=== PATIENT | female | born 1950 | race Caucasian/White ===

== ENCOUNTER → 2017-08-14 07:46 | Outpatient (CLI) | payer MEDICARE, SELFPAY ==
[2017-08-14 10:13] LABS: Absolute Lymphocyte Count 1.75 X10^3/ul (0.83-4.51); Absolute Neutrophil Count 4.3 X10^3/uL (2.0-7.7); Basophil# 0.03 X10^3/uL; Basophil% 0.4 % (0-1); Eosinophil# 0.26 X10^3/uL; Eosinophils% 3.9 % (0-5); Hematocrit 43.3 % (37-47); Lymphocyte # 1.75 X10^3/ul (4.0); Mean Corp Hgb Conc 32.3 g/gl (32-36); Mean Corpuscular Hgb 28.7 pg (27.0-32.0); Mean Corpuscular Volume 88.9 fL (81-99); Mean Platelet Vol. 10.7 fl (6.2-12.0); Monocyte% 5.9 % (0-10); Neutrophil # 4.28 X10^3/uL (2.7-7.7); Neutrophil % 63.7 % (47-70); Platelet Count 348 K/mm3 (150-450); RBC Distribution Width CV 13.7 % (11.6-14.6); RBC Distribution Width SD 44.6 fl (35.1-43.9); Red Blood Count 4.87 M/mm3 (4.2-5.4); White Blood Count 6.7 K/mm3 (4.4-11.0)
[2017-08-14 10:16] LABS: POSITIVE COUNT NO; POSITIVE DIFFERENTIAL NO; POSITIVE MORPHOLOGY NO
[2017-08-14 10:46] LABS: Anion Gap 7 (5-15); BUN 13 mg/dL (7-18); BUN/Creat Ratio 14.1 RATIO (10-20); Calcium,Total 9.2 mg/dL (8.5-10.1); Chloride 106 mmol/L (98-107); Cholesterol 228 mg/dL (200); Creatinine, Serum 0.92 mg/dL (0.55-1.02); EST Glomerular Filtration Rate 65 mL/min (>60); Est Glom Filt Rate - Afr Amer 78 mL/min (>60); Glucose 89 mg/dL (74-106); High Density Lipoprotein 71 mg/dL; Sodium Level 141 mmol/L (136-145); T4 Free Direct 1.19 ng/dL (0.76-1.46); Thyroid Stim Hormone (TSH) 1.81 uIU/mL (0.358-3.74); Triglycerides 96 mg/dL; Very Low Density Lipoprotein 19 mg/dL (5-40)
[2017-08-15 09:24] LABS: Vitamin D,25 Hydroxy 85.8 ng/mL (29.95-100.01)
== END ==
PROVIDERS: Family Provider Family Medicine; PCP Family Medicine; Visit Provider Family Medicine
DX: E87.6 Hypokalemia (principal); M81.0 Age-related osteoporosis without current pathological fracture; G47.00 Insomnia, unspecified; Z13.220 Encounter for screening for lipoid disorders; R03.0 Elevated blood-pressure reading, without diagnosis of hypertension
CPT/HCPCS: 36415; 80048; 80061; 82306; 84439; 84443; 85025

== ENCOUNTER → 2017-12-26 10:42 | Outpatient (CLI) | payer MEDICARE, SELFPAY ==
--- NOTE | 2017-12-26 10:43 | BI_ITS ---
MAMMOGRAPHY - BILATERAL SCREENING REASON FOR EXAM: Female, 67 years old. Routine annual screening examination. PERTINENT HISTORY: Non-contributory. TECHNIQUE: Digital bilateral breast domingo (3D mammographic acquisition) in the CC and MLO projections. 2-D mediolateral oblique (MLO) and craniocaudad (CC) views of both breasts were obtained. CAD: Full Field Digital Mammography with Computer Added Detection was performed. COMPARISON: Comparison is made with prior outside examination of February 10, 2016 and November 13, 2012. FINDINGS: Breast Composition: The breasts are heterogeneously dense, which may obscure small masses. There are no dominant masses or suspicious calcifications. No other significant abnormalities are identified. There has been no significant change since the prior study. BI/SCREENING MAMM (CAD), BILAT IMPRESSION: Stable bilateral screening mammogram. Yearly follow-up mammogram recommended. (A) ASSESSMENT CATEGORY: BIRADS Category 1: Negative. A letter regarding these results will be sent to the patient by the facility within 30 days. Approximately 10% of breast cancers are not detected by mammography. A normal mammogram should not delay biopsy of a clinically suspicious abnormality. [id number] Electronically Signed: Javon Bennett MD at 12:41 EDT Tel [phone], Service support ,
== END ==
PROVIDERS: Family Provider Family Medicine; PCP Family Medicine; Visit Provider Nurse Practitioner Women's Health
DX: Z12.31 Encounter for screening mammogram for malignant neoplasm of breast (principal)
CPT/HCPCS: 77063; 77067

== ENCOUNTER → 2018-01-23 15:20 | Outpatient (CLI) | payer MEDICARE, SELFPAY ==
--- NOTE | 2018-01-23 15:23 | RAD_ITS ---
STUDY: X-RAY CHEST REASON FOR EXAM: Female, 67 years old. Frequent PVCs TECHNIQUE: PA and lateral views of the chest. COMPARISON: None. FINDINGS: The lungs are clear and expanded. There is no demonstrated pleural abnormality. Normal size heart. Normal mediastinum and sebastian. Normal visualized pulmonary arteries. There is atherosclerotic calcification of the aortic arch with tortuosity. There are diffuse degenerative changes of the visualized thoracic spine. Normal visualized ribs, clavicles, and shoulders. There is no demonstrated abnormality of the visualized soft tissue structures of the upper abdomen. RAD/Chest PA and Lateral IMPRESSION: No acute pulmonary process Electronically Signed: Bart Abbott MD at 15:45 EDT , Service support ,
[2018-01-23 18:07] LABS: Anion Gap 8 (5-15); BUN 14 mg/dL (7-18); BUN/Creat Ratio 15.6 RATIO (10-20); Calcium,Total 9.2 mg/dL (8.5-10.1); Chloride 101 mmol/L (98-107); EST Glomerular Filtration Rate 67 mL/min (>60); Est Glom Filt Rate - Afr Amer 81 mL/min (>60); Glucose 105 mg/dL (74-106); Magnesium 2.2 mg/dL (1.6-2.6); Potassium 3.1 mmol/L (3.5-5.1); Sodium Level 136 mmol/L (136-145); T4 Free Direct 1.01 ng/dL (0.76-1.46); Thyroid Stim Hormone (TSH) 1.22 uIU/mL (0.358-3.74)
[2018-01-23 18:17] LABS: Absolute Lymphocyte Count 2.82 X10^3/ul (0.83-4.51); Basophil# 0.03 X10^3/uL; Basophil% 0.3 % (0-1); Eosinophil# 0.23 X10^3/uL; Eosinophils% 2.4 % (0-5); Hemoglobin 12.7 g/dl (12.0-15.0); Lymphocyte # 2.82 X10^3/ul (4.0); Lymphocyte % 29.2 % (19-41); Mean Corp Hgb Conc 31.8 g/gl (32-36); Mean Corpuscular Hgb 28.6 pg (27.0-32.0); Mean Corpuscular Volume 90.1 fL (81-99); Mean Platelet Vol. 11.4 fl (6.2-12.0); Monocyte# 0.62 X10^3/uL; Monocyte% 6.4 % (0-10); Neutrophil # 5.95 X10^3/uL (2.7-7.7); Neutrophil % 61.6 % (47-70); Platelet Count 342 K/mm3 (150-450); RBC Distribution Width CV 13.6 % (11.6-14.6); Red Blood Count 4.44 M/mm3 (4.2-5.4); White Blood Count 9.7 K/mm3 (4.4-11.0)
[2018-01-23 18:18] LABS: POSITIVE COUNT NO; POSITIVE DIFFERENTIAL NO; POSITIVE MORPHOLOGY NO
== END ==
PROVIDERS: Family Provider Family Medicine; PCP Family Medicine; Referring Provider Family Medicine; Visit Provider Family Medicine
DX: R06.00 Dyspnea, unspecified (principal); I49.9 Cardiac arrhythmia, unspecified; R06.02 Shortness of breath; F41.9 Anxiety disorder, unspecified; E87.6 Hypokalemia
CPT/HCPCS: 36415; 71046; 80048; 83735; 84439; 84443; 85025

== ENCOUNTER → 2018-02-19 13:48 | Outpatient (CLI) | payer MEDICARE, SELFPAY ==
--- NOTE | 2018-02-19 13:53 | ECHOD_ITS ---
Reason For Study: SOB Procedure This was a 2D Doppler, Color Flow transthoracic echocardiogram. Exam performed in department. Left Ventricle Normal size and thickness. The estimated ejection fraction is 65 %. Normal diastology for age. No regional wall motion abnormalities noted. Right Ventricle Normal size and thickness. Normal systolic function. Atria Normal left atrium. Normal right atrium. Normal atrial septum. Bubble contrast study negative for right to left interatrial shunt. Mitral Valve The mitral valve is structurally normal. No prolapse or stenosis seen. Trivial mitral valve insufficiency. Tricuspid Valve Normal tricuspid valve. Trivial tricuspid valve insufficiency. Right ventricular systolic pressure estimated to be 34 mmHg. Aortic Valve Normal aortic valve. Trisinus/trileaflet aortic valve. Pulmonic Valve Normal pulmonic valve. Great Vessels Normal aortic root. Normal arch. Normal inferior vena cava. Inferior vena cava collapse with respiration. Pericardium/Pleural No pericardial effusion. Medication 22 gauge I.V. with prn adaptor inserted into right arm. Performed a rapid injection of agitated mix of 9 cc saline and 1cc air to assess for atrial septal defect. MMode/2D Measurements & Calculations LVIDd: 4.1 cm IVSd: 0.95 cm Ao root diam: 2.9 cm LVIDs: 2.9 cm LVPWd: 0.86 cm RVDd: 2.7 cm FS: 30.1 % LAV(MOD-bp): 35.2 ml EDV(MOD-sp4): 75.3 ml EDV(MOD-sp2): 77.0 ml LAV(MOD-bp) Indexed: 22.5 ml/m2 ESV(MOD-sp4): 34.9 ml EF(MOD-sp2): 54.6 % LAV(MOD-sp2): 34.5 ml EF(MOD-sp4): 53.6 % LAV(MOD-sp4): 34.3 ml SV(MOD-sp4): 40.4 ml SV(MOD-sp2): 42.0 ml LA A4 area: 13.5 cm2 LA dimension(2D): 2.8 cm RA A4 area: 14.0 cm2 Doppler Measurements & Calculations MV E max marcelo: 63.5 cm/sec Lat Peak E' Marcelo: 8.7 cm/sec Med Peak E' Marcelo: 4.2 cm/sec MV A max marcelo: 83.3 cm/sec E/E' lat: 7.3 E/E' med: 15.1 MV E/A: 0.76 Ao V2 max: 123.4 cm/sec LV V1 max: 98.7 cm/sec PA V2 max: 93.5 cm/sec Ao max P.1 mmHg LV V1 max P.9 mmHg TR max marcelo: 263.1 cm/sec TR max P.7 mmHg Interpretation Summary The estimated ejection fraction is 65 %. Normal diastology for age. Trivial mitral valve insufficiency. Trivial tricuspid valve insufficiency. Right ventricular systolic pressure estimated to be 34 mmHg. Bubble contrast study negative for right to left interatrial shunt. There is no comparison study available. Ordering Physician: Fredis Vasquez Referring Physician: Fredis Vasquez Performed By: Keke Ricardo RDCS
== END ==
PROVIDERS: Family Provider Family Medicine; PCP Family Medicine; Referring Provider Family Medicine; Visit Provider Family Medicine
DX: R06.00 Dyspnea, unspecified (principal); I49.9 Cardiac arrhythmia, unspecified
CPT/HCPCS: 93306; A4216

== ENCOUNTER → 2018-02-27 15:11 | Outpatient (CLI) | payer MEDICARE, SELFPAY ==
[2018-02-27 18:05] LABS: Anion Gap 9 (5-15); BUN 12 mg/dL (7-18); BUN/Creat Ratio 12.1 RATIO (10-20); Calcium,Total 8.9 mg/dL (8.5-10.1); Chloride 103 mmol/L (98-107); Creatinine, Serum 0.99 mg/dL (0.55-1.02); EST Glomerular Filtration Rate 60 mL/min (>60); Est Glom Filt Rate - Afr Amer 72 mL/min (>60); Glucose 92 mg/dL (74-106); Sodium Level 137 mmol/L (136-145)
--- OUTSIDE RECORDS SUMMARY | 2018-04-25 01:34 | XMS RPT_ITS ---
:1950 Author Organization OHIP Care Team Providers Name Role Phone RONAL HARDY Attending Unavailable FREDIS VASQUEZ Referring Unavailable RONAL HARDY Admitting Unavailable RONAL HARDY Attending Unavailable RONAL HARDY Referring Unavailable Francesco Grigsby Attending Unavailable Fredis Vasquez Attending Unavailable Fredis Vasquez Referring Unavailable Fredis Vasquez Primary Care Unavailable Geri Beatty Attending Unavailable Fredis Vasquez Referring Unavailable Fredis Vasquez Primary Care Unavailable Geri Beatty Attending Unavailable Fredis Vasquez Primary Care Unavailable Fredis Vasquez Attending Unavailable Fredis Vasquez Referring Unavailable Fredis Vasquez Primary Care Unavailable Fredis Vasquez Attending Unavailable Fredis Vasquez Referring Unavailable Fredis Vasquez Primary Care Unavailable Fredis Vasquez Attending Unavailable Fredis Vasquez Primary Care Unavailable PROBLEMS PROBLEMS DATE TYPE CONDITION / CODE ATTENDING STATUS SOURCE 02/27/2018 Unknown I49.9 - Cardiac Fredis Vasquez Active [facility] arrhythmia, Community unspecified / Hospital I49.9(ICD-10) Repository 02/27/2018 Unknown E87.6 - Hypokalemia Fredis Vasquez Active [facility] / E87.6(ICD-10) Community Hospital Repository 03/13/2018 Unknown R06.02 - Shortness Francesco Grigsby Active [facility] of breath / Community R06.02(ICD-10) Hospital Repository 01/23/2018 Unknown F41.9 - Anxiety Fredis Vasquez Active [facility] disorder, Community unspecified / Hospital F41.9(ICD-10) Repository 01/14/2018 Active Ulcerative colitis, HARDY, Active [facility] unspecified, [facility] without Repository complications / K51.90(ICD-10) 11/14/2017 Unknown Z12.31 - Encounter RogerioGeri Active [facility] for screening Community mammogram for Hospital malignant neoplasm Repository of breast / Z12.31(ICD-10) 11/14/2017 Unknown Z01.419 - Encounter Geri Beatty Active [facility] for gynecological Community examination Hospital (general) (routine) Repository without abnormal findings / Z01.419(ICD-10) 10/05/2017 Active Unknown / HARDY, Active [facility] UNK(Unknown) [facility] Repository 08/14/2017 Unknown E78.5 - Fredis Vasquez Active [facility] Hyperlipidemia, Community unspecified / Hospital E78.5(ICD-10) Repository 08/14/2017 Unknown M81.0 - Age-related Fredis Vasquez Active [facility] osteoporosis Community without current Hospital pathological Repository fracture / M81.0(ICD-10) 08/14/2017 Unknown G47.00 - Insomnia, Fredis Vasquez Active [facility] unspecified / Community G47.00(ICD-10) Hospital Repository 08/14/2017 Unknown Z13.220 - Encounter Fredis Vasquez Active [facility] for screening for Community lipoid disorders / Hospital Z13.220(ICD-10) Repository 08/14/2017 Unknown R03.0 - Elevated Fredis Vasquez Active [facility] blood-pressure Community reading, without Hospital diagnosis of Repository hypertension / R03.0(ICD-10) PROCEDURES PROCEDURES No Procedure Records FoundRESULTS RESULTS BASIC METABOLIC Collected: 02/27/2018 Status: F Source: [place] PROFILE (BMP) 3:13 PM [facility] TYPE CODE TESTS RESULT OUT OF RANGE REFERENCE UNITS LAB L501.0100 74-106 mg/dL Normal GLU 92 Result Comment: Please note revised GLUCOSE reference range effective 2017. LAB L501.1000 7-18 mg/dL Normal BUN 12 LAB L501.1100 0.55-1.02 mg/dL Normal CREAT,SERUM 0.99 Result Comment: The validity of the calculated GFR AND GFRAA in patients over 70 years has not been determined. Clinical correlation is essential. LAB L501.1110 >60 mL/min Normal EST GFR 60 Result Comment: Non- GFR Calc LAB L501.1115 >60 mL/min Normal EST GFR - AA 72 Result Comment: GFR Calc LAB L501.1300 10-20 RATIO Normal BUN/CRE 12.1 LAB L501.2200 8.5-10.1 mg/dL CA Normal 8.9 LAB L501.5300 136-145 mmol/L NA Normal 137 LAB L501.5600 3.5-5.1 mmol/L K Normal 4.0 LAB L501.5900 98-107 mmol/L CL Normal 103 LAB L501.6100 21.0-32.0 mmol/L Normal CO2 25.0 LAB L501.6200 5-15 Normal GAP 9 Performed By: #### L500.2500 #### [facility] [address] [place], [address] ECHOCARDIOGRAM COMPLETE Observed: 02/20/2018 Status: F Source: [place] 10:50 AM [facility] REPOSITORY [facility] Cardiovascular Services [address] [place] [address] Echo Complete 02/19/18 1355 MR#: [id number] Acct: [id number] Name: ALBA TORIBIO Rep #: [id number] : 1950 67 From: Francesco Grigsby MD Attending Dr: Fredis Vasquez MD Status: REG CLI Ordering Dr: Fredis Vasquez MD Date: 02/19/18 Location: [facility] Sex: F C Admitted: Reason For Study: SOB Procedure This was a 2D Doppler, Color Flow transthoracic echocardiogram. Exam performed in department. Left Ventricle Normal size and thickness. The estimated ejection fraction is 65 %. Normal diastology for age. No regional wall motion abnormalities noted. Right Ventricle Normal size and thickness. Normal systolic function. Atria Normal left atrium. Normal right atrium. Normal atrial septum. Bubble contrast study negative for right to left interatrial shunt. Mitral Valve The mitral valve is structurally normal. No prolapse or stenosis seen. Trivial mitral valve insufficiency. Tricuspid Valve Normal tricuspid valve. Trivial tricuspid valve insufficiency. Right ventricular systolic pressure estimated to be 34 mmHg. Aortic Valve Normal aortic valve. Trisinus/trileaflet aortic valve. Pulmonic Valve Normal pulmonic valve. Great Vessels Normal aortic root. Normal arch. Normal inferior vena cava. Inferior vena cava collapse with respiration. Pericardium/Pleural No pericardial effusion. Medication 22 gauge I.V. with prn adaptor inserted into right arm. Performed a rapid injection of agitated mix of 9 cc saline and 1cc air to assess for atrial septal defect. MMode/2D Measurements AND Calculations LVIDd: 4.1 cm IVSd: 0.95 cm Ao root diam: 2.9 cm LVIDs: 2.9 cm LVPWd: 0.86 cm RVDd: 2.7 cm FS: 30.1 % LAV(MOD-bp): 35.2 ml EDV(MOD-sp4): 75.3 ml EDV(MOD-sp2): 77.0 ml LAV(MOD-bp) Indexed: 22.5 ml/m2 ESV(MOD-sp4): 34.9 ml EF(MOD-sp2): 54.6 % LAV(MOD-sp2): 34.5 ml EF(MOD-sp4): 53.6 % LAV(MOD-sp4): 34.3 ml SV(MOD-sp4): 40.4 ml SV(MOD-sp2): 42.0 ml LA A4 area: 13.5 cm2 LA dimension(2D): 2.8 cm RA A4 area: 14.0 cm2 Doppler Measurements AND Calculations MV E max marcelo: 63.5 cm/sec Lat Peak E' Marcelo: 8.7 cm/sec Med Peak E' Marcelo: 4.2 cm/sec MV A max marcelo: 83.3 cm/sec E/E' lat: 7.3 E/E' med: 15.1 MV E/A: 0.76 Ao V2 max: 123.4 cm/sec LV V1 max: 98.7 cm/sec PA V2 max: 93.5 cm/sec Ao max P.1 mmHg LV V1 max P.9 mmHg TR max marcelo: 263.1 cm/sec TR max P.7 mmHg Interpretation Summary The estimated ejection fraction is 65 %. Normal diastology for age. Trivial mitral valve insufficiency. Trivial tricuspid valve insufficiency. Right ventricular systolic pressure estimated to be 34 mmHg. Bubble contrast study negative for right to left interatrial shunt. There is no comparison study available. Ordering Physician: Fredis Vasquez Referring Physician: Fredis Vasquez Performed By: Keke Ricardo RDCS 02/20/18 1049 Date Francesco Grigsby MD CC: Fredis Vasquez MD Date Dictated: 02/19/18 1355 Date Transcribed: 02/20/18 104 Tip Puncher: Signed BASIC METABOLIC Collected: 01/23/2018 Status: F Source: [place] PROFILE (BMP) 3:25 PM [facility] REPOSITORY TYPE CODE TESTS RESULT OUT OF RANGE REFERENCE UNITS LAB L501.0100 74-106 mg/dL Normal GLU 105 Result Comment: Fasting Glucose result from 100 to 125 mg/dL suggests IMPAIRED HOMEOSTASIS per A.D.A. criteria. Please note revised GLUCOSE reference range effective 2017. LAB L501.1000 7-18 mg/dL Normal BUN 14 LAB L501.1100 0.55-1.02 mg/dL Normal CREAT,SERUM 0.90 Result Comment: The validity of the calculated GFR AND GFRAA in patients over 70 years has not been determined. Clinical correlation is essential. LAB L501.1110 >60 mL/min Normal EST GFR 67 Result Comment: Non- GFR Calc LAB L501.1115 >60 mL/min Normal EST GFR - AA 81 Result Comment: GFR Calc LAB L501.1300 10-20 RATIO Normal BUN/CRE 15.6 LAB L501.2200 8.5-10.1 mg/dL CA Normal 9.2 LAB L501.5300 136-145 mmol/L NA Normal 136 LAB L501.5600 3.5-5.1 mmol/L Low K 3.1 LAB L501.5900 98-107 mmol/L CL Normal 101 LAB L501.6100 21.0-32.0 mmol/L Normal CO2 27.0 LAB L501.6200 5-15 Normal GAP 8 Performed By: #### L500.2500, L501.5200, L501.9520, L506.0400 #### [facility] [address] [place], [address] MAGNESIUM Collected: 01/23/2018 Status: F Source: [place] 3:25 PM [facility] REPOSITORY TYPE CODE TESTS RESULT OUT OF RANGE REFERENCE UNITS LAB L501.5200 1.6-2.6 mg/dL Normal MG 2.2 Performed By: #### L500.2500, L501.5200, L501.9520, L506.0400 #### [facility] [address] [place], [address] THYROID STIM HORMONE Collected: 01/23/2018 Status: F Source: [place] (TSH) 3:25 PM [facility] REPOSITORY TYPE CODE TESTS RESULT OUT OF RANGE REFERENCE UNITS LAB L501.9520 0.358-3.74 uIU/mL Normal TSH 1.22 Performed By: #### L500.2500, L501.5200, L501.9520, L506.0400 #### [facility] [address] [place], [address] T4 FREE DIRECT Collected: 01/23/2018 Status: F Source: [place] 3:25 PM [facility] REPOSITORY TYPE CODE TESTS RESULT OUT OF RANGE REFERENCE UNITS LAB L506.0400 0.76-1.46 ng/dL Normal T4 FREE 1.01 DIRECT Performed By: #### L500.2500, L501.5200, L501.9520, L506.0400 #### [facility] [address] [place], [address] CBC W/DIFF, AUTOMATED Collected: 01/23/2018 Status: F Source: [place] 3:25 PM [facility] REPOSITORY TYPE CODE TESTS RESULT OUT OF RANGE REFERENCE UNITS LAB L100.1000 4.4-11.0 K/mm3 Normal WBC 9.7 LAB L100.1200 4.2-5.4 M/mm3 Normal RBC 4.44 LAB L100.1300 12.0-15.0 g/dl Normal HGB 12.7 LAB L100.1400 37-47 % Normal HCT 40.0 LAB L100.1500 81-99 fL Normal MCV 90.1 LAB L100.1600 27.0-32.0 pg Normal MCH 28.6 LAB L100.1700 32-36 g/gl Low MCHC 31.8 LAB L100.1810 11.6-14.6 % Normal RDW CV 13.6 LAB L100.1820 35.1-43.9 fl High RDW SD 45.0 LAB L100.1900 150-450 K/mm3 Normal PLT 342 LAB L100.2000 6.2-12.0 fl Normal MPV 11.4 LAB L100.2100 47-70 % Normal NEUT% 61.6 LAB L100.2200 19-41 % Normal LY% 29.2 LAB L100.2300 0-10 % Normal MONO% 6.4 LAB L100.2400 0-5 % Normal EO% 2.4 LAB L100.2500 0-1 % Normal BASO% 0.3 LAB L100.2550 0.0-0.9 % Normal IM GRAN % 0.100 Result Comment: IG% - Immature Granulocytes (promyelocytes, myelocytes and metamyelocytes) > 1% indicates that a LEFT SHIFT is Present. LAB L100.2620 2.0-7.7 X10 3/uL Normal Absolute Neut 6.0 LAB L100.2720 0.83-4.51 X10 3/ul Normal Absolute Lymph 2.82 Performed By: #### L100.0100 #### [facility] [address] [facility] [place], [place], [address] CHEST PA AND LATERAL Observed: 01/23/2018 Status: F Source: [place] 3:24 PM [facility] REPOSITORY [facility] Imaging Services [address] [place] [address] Chest PA and Lateral MR#: [id number] Acct: [id number] Name: DALTONXOCHITLALBA S Rep #: [id number] : 1950 F 67 From: Abner Abbott MD PCP: Fredis Vasquez MD Status: REG CLI Study: Chest PA and Lateral Date of Exam: 01/23/18 Exam# [id number] Ordering Dr: Fredis Vasquez MD STUDY: X-RAY CHEST REASON FOR EXAM: Female, 67 years old. Frequent PVCs TECHNIQUE: PA and lateral views of the chest. COMPARISON: None. FINDINGS: The lungs are clear and expanded. There is no demonstrated pleural abnormality. Normal size heart. Normal mediastinum and sebastian. Normal visualized pulmonary arteries. There is atherosclerotic calcification of the aortic arch with tortuosity. There are diffuse degenerative changes of the visualized thoracic spine. Normal visualized ribs, clavicles, and shoulders. There is no demonstrated abnormality of the visualized soft tissue structures of the upper abdomen. RAD/Chest PA and Lateral IMPRESSION: No acute pulmonary process Electronically Signed: Bart Abbott MD at 15:45 EDT , Service support , CC: Fredis Vasquez MD Tip Puncher: Signed NURSING PROG Observed: 01/14/2018 Status: COMPLETED Source: [place] 2:35 PM [facility] REPOSITORY HNO ID: [id number] Author: Nichole Smith RN Service: (none) Author Type: Registered Nurse Type: Nursing Progress Note Filed: 01/15/2018 8:49 AM Note Text: Patient did not experience a fall prior to discharge. Patient did not experience a burn prior to discharge. Nichole Smith RN PT ED Observed: 01/14/2018 Status: COMPLETED Source: [place] 2:00 PM [facility] REPOSITORY HNO ID: [id number] Author: Kristina Feldman RN Service: (none) Author Type: Registered Nurse Type: Patient Education Filed: 01/14/2018 2:00 PM Note Text: POST OP LEARNING RESPONSE INSTRUCTION PROVIDED TO: Patient and Spouse METHOD OF INSTRUCTION: Individual instruction Written instruction - handouts Verbal instruction PATIENT / FAMILY RESPONSE: Verbalizes understanding of: INFECTION MANAGEMENT-Signs and symptoms of an infection and importance of contacting the physician MEDICAL REGIMEN-Importance of following prescribed medical regimen PAIN MANAGEMENT-Effective strategies to manage pain in addition to pain medication PHYSICAL RESTRICTIONS-Physical restrictions and recommendations after discharge from the hospital POST-PROCEDURE INSTRUCTIONS-Correct actions to take to reduce post procedure complications PATIENT SAFETY PRINCIPLES SYMPTOM MANAGEMENT-Correct actions to take to manage symptoms associated with his/her disease/illness WORSENING CONDITION-Signs and symptoms of a worsening condition that warrant a call to the physician FOLLOW-UP PLAN: Patient instructed to call with any further issues Follow up phone call. Contact information given. SUPPLEMENTAL MATERIAL: AVS REFERRAL (RECOMMENDATION): None Electronically Signed By: Kristina Feldman RN In Department: AMBULATORY SURGERY NURSING PROG Observed: 01/14/2018 Status: COMPLETED Source: [place] 2:00 PM [facility] REPOSITORY HNO ID: [id number] Author: Kristina Feldman RN Service: (none) Author Type: Registered Nurse Type: Nursing Progress Note Filed: 01/14/2018 2:00 PM Note Text: Patient sitting up in bed tolerating snack and drink without problems. Kristina Feldman RN NURSING PROG Observed: 01/14/2018 Status: COMPLETED Source: [place] 1:27 PM [facility] REPOSITORY HNO ID: [id number] Author: Kristina Feldman RN Service: (none) Author Type: Registered Nurse Type: Nursing Progress Note Filed: 01/14/2018 1:31 PM Note Text: Patient arrived to PACU, on left side, abdomen soft. Patient resting comfortably. Kristina Feldman RN BRIEF OP NOT Observed: 01/14/2018 Status: COMPLETED Source: [place] 1:24 PM [facility] REPOSITORY HNO ID: [id number] Author: Ronal Hardy Service: Gastroenterology Author Type: Physician Type: Brief Op Note Filed: 01/14/2018 1:24 PM Note Text: BRIEF OPERATIVE NOTE PATIENT NAME: Alba Toribio LOG ID: [id number] Surgery Date: 01/14/2018 Surgeon(s) and Tungsten Tender(s): Ronal Hardy MD -Primary Procedure(s): Procedure(s) (LRB): COLONOSCOPY (N/A) COLONOSCOPY FLEXIBLE W/ BIOPSY (N/A) Anesthesia: Procedural Sedation Findings: Loss of vascularity in the rectosigmoid colon Estimated Blood Loss: Minimal Specimens: Rectosigmoid biopsies Preop Diagnosis: Ulcerative colitis without complications, unspecified location (HCC) [K51.90] Postop Diagnosis: Ulcerative colitis without complications, unspecified location (HCC) [K51.90] SIGNATURE: Ronal Hardy MD DATE: January 14, 2018 TIME: 1:24 PM NURSING PROG Observed: 01/14/2018 Status: COMPLETED Source: [place] 1:23 PM [facility] REPOSITORY HNO ID: [id number] Author: Afia PackerRn) RHEA Bradley Service: (none) Author Type: Registered Nurse Type: Nursing Progress Note Filed: 01/14/2018 1:23 PM Note Text: Patient did not experience a fall within the Intraoperative area. Patient did not experience a burn within the Intraoperative area. Afia Bradley RN NURSING PROG Observed: 01/14/2018 Status: COMPLETED Source: [place] 1:01 PM [facility] REPOSITORY HNO ID: [id number] Author: Sindy Alford (Rn) RHEA Hinojosa Service: Nursing Author Type: Registered Nurse Type: Nursing Progress Note Filed: 01/14/2018 1:03 PM Note Text: [facility] PRE-OP NURSING HAND OFF NOTE SBAR Hand off given to Afia Bradley RN. Hand off was communicated verbally and at the patient's bedside and all questions were answered. FALLS/CARVALHO Patient did not experience a fall within the Preoperative area. Patient did not experience a burn within the Preoperative area. Sindy Hinojosa RN HISTORY PHYSICAL Observed: 01/14/2018 Status: COMPLETED Source: [place] 12:35 PM [facility] REPOSITORY HNO ID: [id number] Author: Ronal Hardy Service: Gastroenterology Author Type: Physician Type: HANDP Filed: 01/14/2018 12:35 PM Note Text: PROCEDURAL SEDATION HISTORY AND PHYSICAL EXAM SERVICE DATE: 01/14/2018 SERVICE TIME: 12:35 PM Subjective HPI: This is a 67 year old female who presents with left-sided ulcerative colitis for many many years PAST ANESTHESIA HISTORY: No history of adverse event PAST MEDICAL HISTORY Diagnosis Date - Dizziness and giddiness - Esophagitis, unspecified - Other and unspecified ovarian cyst Ovarian cyst - Other ulcerative colitis - Papanicolaou smear of cervix with atypical squamous cells of undetermined significance (ASC-US) - Papanicolaou smear of cervix with atypical squamous cells of undetermined significance (ASC-US) - Ulcerative colitis, unspecified - Urinary tract infection, site not specified Recurrent UTI's - Vertigo PAST SURGICAL HISTORY Procedure Laterality Date - COLONOSCOP W/ OR W/O BRSH SPEC 09/18/83 Colonoscopy - COLONOSCOP W/ OR W/O BRSH SPEC 02/19/13 Colonoscopy - COLONOSCOPY W/BX 04/23/08 - EGD W/O BRSH SPECIMEN W/BX 04/23/08 - EGD W/O OR W/BRUSH/WASH 02/19/13 EGD - LIGATE FALLOPIAN TUBE Tubal ligation - NOSE SURGERY HX july 2013 polp removed from nose - PAST SURGICAL HISTORY OF 1975 DERMOID CYST REMOVED - TOTAL ABDOM HYSTERECTOMY 08/1991 Prior to Admission medications as of 01/14/18 1210 Medication Sig Last Dose Taking mesalamine (ASACOL HD) 800 mg TbEC EC tablet Take 2 tablets by mouth twice daily. 01/13/2018 at Unknown time Yes cholecalciferol (VITAMIN D-3) 5,000 unit tab Take 5,000 Units by mouth once daily. Past Week at Unknown time Yes Estradiol (VAGIFEM) 10 mcg tab vaginal tablet Use 1 tab daily for 2 weeks AND then 2 times per week ongoing. Past Week at Unknown time Yes Ascorbic Acid (VITAMIN C) 1,000 mg tablet Take 1,000 mg by mouth once daily. Past Week at Unknown time Yes Omeprazole (PRILOSEC) 40 mg capsule Take 1 capsule by mouth once daily. 01/13/2018 at Unknown time Yes solifenacin (VESICARE) 5 mg tablet Take 1 tablet by mouth once daily. 01/13/2018 at Unknown time Yes Lutein 20 mg cap Take 1 capsule by mouth. Past Week at Unknown time Yes calcium carbonate(CALTRATE 600 600 MG (1,500 MG) TAB) with Vitamin D. Take two tablets daily. Past Week at Unknown time Yes MULTIVITAMIN CAP Past Week at Unknown time Yes traZODone (DESYREL) 50 mg tablet TAKE 1/2 (ONE-HALF) TO 1 (ONE) TABLET BY MOUTH AT BEDTIME for sleep Unknown at Unknown time fluticasone (FLONASE) 50 mcg/actuation nasal spray Use 1 Harts in each nostril twice daily. Unknown at Unknown time ALLERGIES Allergen Reactions - Asa [Salicylates] GI Upset - Bee Stings [Other] - Sulfa (Sulfonamide * Hives Objective PHYSICAL EXAM: The remainder of the physical exam is noncontributory. AIRWAY: Airway Visualization of Uvula: Yes Mouth opening greater than 2 fingerbreadths: Yes Neck Full Range of Motion: Yes LUNGS: Lungs clear to auscultation, Good diaphragmatic excursion CARDIAC: Normal S1 and S2; no rubs, murmurs, or gallops Assessment/Plan ASA Class: ASA Class:: Patient with mild systemic disease Active Problems: * No active hospital problems. * Resolved Problems: * No resolved hospital problems. * Provisional Diagnosis/Treatment Plan: Left-sided ulcerative colitis/colonoscopy SEDATION GOAL: Moderate SIGNATURE: Ronal Hardy MD PATIENT NAME: Alba Toribio DATE: January 14, 2018 TIME: 12:35 PM PAGER: NURSING PROG Observed: 01/14/2018 Status: COMPLETED Source: [place] 12:34 PM [facility] REPOSITORY HNO ID: [id number] Author: Sindy Alford (Rn) RHEA Hinojosa Service: Nursing Author Type: Registered Nurse Type: Nursing Progress Note Filed: 01/14/2018 12:46 PM Note Text: Dr. Hardy at bedside and is aware of patient's blood pressure results of 200/101 and recheck result of 227/102 Sindy Hinojosa RN PT ED Observed: 01/14/2018 Status: COMPLETED Source: [place] 12:12 PM [facility] REPOSITORY HNO ID: [id number] Author: Sindy PackerRn) RHEA Hinojosa Service: Nursing Author Type: Registered Nurse Type: Patient Education Filed: 01/14/2018 12:12 PM Note Text: PRE OP LEARNING ASSESSMENT PROCEDURE/SURGERY: GI PROCEDURES: Colonoscopy READINESS TO LEARN COGNITIVE ABILITY: Alert and oriented MOTIVATION TO LEARN: Eager FAMILY SUPPORT: High - Very involved in pt care PATIENT LEARNS BEST BY: Verbal Instruction FACTORS AFFECTING LEARNING: None PHYSICAL LIMITATIONS AFFECTING LEARNING: None Electronically Signed By: Sindy Rocío De Pue, RN In Department: AMBULATORY SURGERY SURGICAL PATHOLOGY Observed: 01/14/2018 Status: F Source: [place] 12:00 AM [facility] REPOSITORY Specimen originated from [facility] Specimen #: [id number] Submitting Physician: RONAL HARDY MD FINAL DIAGNOSIS Recto-sigmoid, biopsy - Colonic mucosa with chronic inactive colitis. Negative for dysplasia. SR/AN/tori 01/15/2018 Fredis Almodovar MD, Ph.D. (Electronic Signature) SPECIMEN SUBMITTED A: RECTO-SIGMOID, BIOPSY CLINICAL DATA Ulcerative colitis without complications, unspecified location ([facility]) [K51.90] GROSS DESCRIPTION A. Received in formalin are five pieces of ruiz, soft tissue aggregating to 1.4 x 0.3 x 0.2 cm. Totally submitted in one cassette. Gross examination performed at [facility], [address] [place] [address] 01/14/2018 10:33:46 PM Date of Report: 01/15/2018 Date of Procedure: 01/14/2018 Date of Receipt: 01/14/2018 Submitted by: RONAL HARDY MD Location: W010 Diagnostic interpretation performed at [facility], [address] [place] [address]. 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 Routine annual screening examination. PERTINENT HISTORY: Non-contributory. TECHNIQUE: Digital bilateral breast domingo (3D mammographic acquisition) in the CC and MLO projections. 2-D mediolateral oblique (MLO) and craniocaudad (CC) views of both breasts were obtained. CAD: Full Field Digital Mammography with Computer Added Detection was performed. COMPARISON: Comparison is made with prior outside examination of February 10, 2016 and November 13, 2012. FINDINGS: Breast Composition: The breasts are heterogeneously dense, which may obscure small masses. There are no dominant masses or suspicious calcifications. No other significant abnormalities are identified. There has been no significant change since the prior study. BI/SCREENING MAMM (CAD), BILAT IMPRESSION: Stable bilateral screening mammogram. Yearly follow-up mammogram recommended. (A) ASSESSMENT CATEGORY: BIRADS Category 1: Negative. A letter regarding these results will be sent to the patient by the facility within 30 days. Approximately 10% of breast cancers are not detected by mammography. A normal mammogram should not delay biopsy of a clinically suspicious abnormality. [id number] Electronically Signed: Javon Bennett MD at 12:41 EDT Tel [phone], Service support , CC: KRISTOPHER Beatty; Fredis Vasquez MD Tip Puncher: Signed HOSP Observed: 12/07/2017 Status: COMPLETED Source: [place] 12:00 AM [facility] REPOSITORY Patient:Alba Toribio MRN: <[id number]> Height:5' .236(1.53 m) Weight:No patient weight recorded within the last 30 days. Outpatient Medications as of 01/14/18: mesalamine (ASACOL HD) 800 mg TbEC EC tablet cholecalciferol (VITAMIN D-3) 5,000 unit tab Estradiol (VAGIFEM) 10 mcg tab vaginal tablet mesalamine (ASACOL HD) 800 mg TbEC EC tablet cholecalciferol (VITAMIN D-3) 5,000 unit tab traZODone (DESYREL) 50 mg tablet Ascorbic Acid (VITAMIN C) 1,000 mg tablet fluticasone (FLONASE) 50 mcg/actuation nasal spray Omeprazole (PRILOSEC) 40 mg capsule solifenacin (VESICARE) 5 mg tablet Lutein 20 mg cap calcium carbonate(CALTRATE 600 600 MG (1,500 MG) TAB) MULTIVITAMIN CAP Admission/Clinic Administered Medications as of 01/14/18: lactated ringers infusion Problem List: Other specified disorder of bladder [596.8] Postmenopausal atrophic vaginitis [N95.2] Symptomatic menopausal or female climacteric states [N95.1] Papanicolaou smear of cervix with atypical squamous cells of undetermined significance (ASC-US) [R87.610] Cervical high risk human papillomavirus (HPV) DNA test positive [R87.810] Esophagitis, unspecified [K20.9] Ulcerative colitis (HCC) [K51.90] Hematuria [R31.9] Renal cyst [N28.1] Urethral pain [R39.89] Allergies: Asa [Salicylates] BEE STINGS [Other] Sulfa (Sulfonamide Antibiotics) Date Verified: 01/14/18 Lab Values No results within the last 30 days for the following basenames: K,HCT No progress notes entered within the past 30 days NUTRITION 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 [place] [address] OFFICE VISIT Date of Service: 11/14/17 MR#: [id number] Acct: [id number] Name: ALBA TORIBIO Rep #: [id number] : 1950 Provider: KRISTOPHER Beatty Age/Sex: 67/F Location: [facility] Status: Signed Intake Vital Signs11/14/17 Height 5 ft 1 in 11/14/17 Weight: 130 lb 6 oz 11/14/17 Body Mass Index (BMI) 24.6 11/14/17 Blood Pressure 184/90 Intake Visit Reasons: ANNUAL - [facility] PATIENT Bank Teller Required: No Is patient in pain?: No Allergies aspirin Allergy (Mild, Verified 11/14/17 14:11) headaches, nausea Sulfa (Sulfonamide Antibiotics) Allergy (Mild, Verified 11/14/17 14:11) hives Medications calcium carbonate-vitamin D3 600 mg (1,500 mg)-400 unit capsule cap PO 11/14/17 [History Confirmed 11/14/17] cholecalciferol (vitamin D3) 5,000 unit capsule 5,000 unit PO .every other day cap 11/14/17 [History Confirmed 11/14/17] cranberry 400 mg capsule 400 mg PO ONCE 11/14/17 [History Confirmed 11/14/17] estradiol 10 mcg vaginal tablet 10 mcg VAGINAL 2XW 11/14/17 [History Confirmed 11/14/17] fluticasone 50 mcg/actuation nasal spray,suspension 2 spray INTRANASAL QDAY 11/14/17 [History Confirmed 11/14/17] lutein 20 mg capsule 20 mg PO QDAY 11/14/17 [History Confirmed 11/14/17] mesalamine 800 mg tablet,delayed release 1,600 mg PO TID 11/14/17 [History Confirmed 11/14/17] multivitamin tablet 1 tab PO QAM 11/14/17 [History Confirmed 11/14/17] omeprazole 40 mg capsule,delayed release 40 mg PO QDAY 11/14/17 [History Confirmed 11/14/17] solifenacin 5 mg tablet 5 mg PO QDAY 11/14/17 [History Confirmed 11/14/17] trazodone 50 mg tablet 50 mg PO QDAY PRN 11/14/17 [History Confirmed 11/14/17] PFSH Medical History Insomnia (Acute) Ulcerative colitis (Acute) Vitamin D deficiency (Acute) Cervical high risk human papillomavirus (HPV) DNA test positive (Acute) Esophagitis (Acute) Hematuria (Acute) Papanicolaou smear of cervix with atypical squamous cells of undetermined significance (ASC-US) (Acute) Postmenopausal atrophic vaginitis (Acute) Renal cyst (Acute) Symptomatic menopausal or female climacteric states (Acute) Urethral pain (Acute) Surgical History H/O abdominal hysterectomy (Resolved) H/O tubal ligation (Resolved) S/P removal of ovarian cyst (Resolved) s/p nasal polyps removed (Resolved) Family History Father Bone cancer Social History Smoking Status: Never smoker alcohol intake: current details: occasionally substance use type: does not use caffeine: Yes what type of physical activity do you participate in: walking, other details: aquacise frequency: 1-2 times per week seatbelt use: always do you feel safe at home: Yes additional social history: Vmjsoza-Ftqt-Wkupilf 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 DatName GA/WeeksOutcome [facility] LocaProviderFOB e ht en tn Unknown Anil-196 9 Unknown Mark- 1971 HPI ANNUAL - [facility] PATIENT: Details: ALAB TORIBIO is a 67 year old who presents for new patient annual exam. Note elevated BP today but states always up with physician visits. Saw PCP (Christina) 3 months ago and is aware. She takes at home and calls reading to PCP which are WNL History of abnormal PAP: no Last mammogram: 2016 History of abnormal mammogram: no Colon cancer screenin BMD 2017 with PCP ROS Const Constitutional: Denies fatigue, weight gain or weight loss Cardio Card: Denies chest pain Resp Resp: Denies cough or shortness of breath with activity GI GI: Denies abdominal pain, constipation, change in stools, vomiting or bloating : Reports as per HPI; denies urinary frequency, pelvic pain, urinary urgency, vaginal discharge, vaginal itching, urinary incontinence or difficulty urinating Exam Const General: cooperative, healthy appearing, no acute distress, well developed Orientation: alert, oriented to person, oriented to place HENOH Head: normal to inspection Neck Neck: normal visual inspection Thyroid: thyroid normal Lymphatic: no lymphadenopathy noted Chest Breast inspection: normal inspection of the breasts, normal inspection of the axillae Breast palpation: normal palpation of the breasts, normal palpation of the axillae, no axillary lymphadenopathy Resp Effort AND Inspection: normal respiratory effort GI Palpation: soft, nontender, no masses Rectal Exam: mass, deferred External Female Exam: normal external appearance, normal appearance of the urethra Urethra: normal appearance of the urethra, normal palpation Speculum Exam - Vagina: normal vaginal discharge, atrophic vaginal mucosa Speculum Exam - Cervix: normal appearance of the cervix Bimanual Exam- Vagina AND Uterus: normal bimanual exam, uterine size normal, uterine shape normal, uterus non-tender Bimanual Exam- Adnexa, other: normal adnexae, no adnexal masses, adnexae non-tender, pelvic support normal Pelvic Support: normal Neuro General: alert, oriented x3 Psych Affect: normal affect Assessment AND Plan Problems 1. Encounter for gynecological examination without abnormal finding Z01.419 2. Encounter for screening mammogram for malignant neoplasm of breast Z12.31 Plan Completed breast and pelvic exam Reviewed diet and exercise Discussed importance of home monitoring of BP and reporting elevations or other S AND S to PCP Mammogram ordered Contraception NA Colonoscopy scheduled with Dr. 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 Orders Orders: Coding Level of Care Code MC Pelvic/Breast Diagnoses Encounter for gynecological examination without abnormal finding Z01.419 Gynecological examination findings: abnormal findings ABSENT Encounter for screening mammogram for malignant neoplasm of breast Z12.31 11/14/17 1448 <Electronically signed by Geri AGUIAR> Date Geri AGUIAR Cosigner Signature: Date (if applicable) CC: TAYLOR Observed: 10/19/2017 Status: COMPLETED Source: [place] 12:00 AM [facility] REPOSITORY Telephone (GASTTW) DALTONALBA LEUNG ([id number]) 1950 F Date Time Provider Department 10/19/17 RONAL HARDY During your visit today, we recorded the following information about you: Jaime Dukes RN, RN 10/19/2017 11:32 AM Signed Received request from [facility] for asacol authorization. Form filled out, signed, and faxed back to [facility] at . Jaime Dukes RN October 19, 2017 11:31 AM Jaime Dukes RN, RN 10/22/2017 11:43 AM Signed Received notification of denial from [facility]. Asacol denied due to pt needing to trying other medications first. Notice of denial and appeal paperwork placed on Dr. Hardy's desk for review. Jaime Dukes RN October 22, 2017 11:43 AM Anil Francois Psr 10/24/2017 3:38 PM Signed Patient calling to advise insurance wants patient to try Apriso... If Apriso doesn't work will need a letter sent within 60days for Asacol... Anil Francois Pss Molly Fernandesshaheed Jung 10/24/2017 3:44 PM Signed Please see message below and advise Molly Hardy MD 10/25/2017 11:02 AM Signed Have written prescription for Apriso. Other details of the message appreciated Molly Pete Jung 10/25/2017 11:31 AM Signed Thank you for re-writing for the Apriso. Talked with patient, she stated that the insurance company thought she should try the generic forms of medications first before they will approve the Asacol HD.If the Apriso doesn't work they will need a letter from the physician stating so. Afia Mae Psr 11/06/2017 12:10 PM Signed Patient is calling to state she is having side effects. She states it caused her colitis to flare up, and caused her left side abdominal pain. She is asking if there is anything else she can take. [phone] Jaime Dukes RN, RN 11/06/2017 12:21 PM Signed Please see message and advise. Ronal Hardy MD 11/06/2017 1:30 PM Signed If she is now tried both Apriso and Lialda, it would be time to write my letter of appeal for Asacol. Can you check to see whether she tried that Lialda already Jihan Cansecoscott Jung 11/06/2017 1:50 PM Signed Returned patient call, patient was on Lialda for 1 month with Side effects, Apriso with side effects. Asacol, she was on for may years w/good results. Jihan Kush Parisi November 06, 2017 1:50 PM Ronal Hardy MD 11/06/2017 2:03 PM Signed Informed the patient that I will write a letter on her behalf in favor of of Asacol and she has failed the other 2. I will get around would probably tomorrow Bee Maddox LPN 11/06/2017 2:17 PM Signed Noted. Bee Maddox LPN November 06, 2017 2:17 PM Afia Wolffr 11/29/2017 10:37 AM Signed Patient is calling regarding the letter for the asacol. Please advise if this was ever done. Patient [phone] Jaime Dukes RN, RN 11/29/2017 10:59 AM Signed Collected letter and appeal paper from Dr. Hardy. Faxed to [employer] Appeal Dept at . Received confirmation that fax was sent. Pt notified.Patient verbalizes understanding and has no other questions or concerns at this time. Jaime Dukes RN November 29, 2017 10:59 AM Jaime Dukes RN, RN 12/04/2017 9:44 AM Signed Received approval from [employer] for asacol appeal. Pt states she needs new script for medication. Please advise. Thank you. Jaime Dukes RN December 04, 2017 9:44 AM Ronal Hardy MD 12/04/2017 10:18 AM Signed orders written for Asacol HD 2 pills twice a day Jaime Dukes RN, RN 12/04/2017 10:34 AM Signed Noted. Receipt confirmed by pharmacy. Pt aware that medication would be sent to pharmacy. Jaime Dukes RN December 04, 2017 10:33 AM Allergies As of Date: 10/19/2017 Noted Allergy Reaction ASA (SALICYLATES) 07/19/2005 8 - GI Upset BEE STINGS [Other] 07/19/2005 SULFA (SULFONAMIDE ANTIBIOTICS) 07/19/2005 4 - Hives Date Reviewed: 10/05/2017 Reviewed by: Silvia Laughlin - Fully Assessed Reason for Visit: Insurance Authorization [[id number]] Prescriptions as of 10/19/2017 Sig: CHOLECALCIFEROL (VITAMIN D3) * Take 5,000 Units by mouth onc* TRAZODONE 50 MG TABLET TAKE 1/2 (ONE-HALF) TO 1 (ONE* X MESALAMINE 800 MG TABLET,MISHA* Take 1 tablet by mouth once d* X MESALAMINE 800 MG TABLET,MISHA* Take 1 tablet by mouth three * X MESALAMINE 1.2 GRAM TABLET,DE* Take 1 tablet by mouth daily * ESTRADIOL 10 MCG VAGINAL TABL* Use 1 tab daily for 2 weeks AND* X MESALAMINE 800 MG TABLET,MISHA* Take 1 tablet by mouth three * X MESALAMINE CR 250 MG CAPSULE,* Take 2 capsules by mouth four* POLYCARBOPHIL VAGINAL GEL Use vaginally twice a week. ASCORBIC ACID (VITAMIN C) 1,0* Take 1,000 mg by mouth once d* VITAMIN E 1,000 UNIT CAPSULE Take 1,000 Units by mouth onc* FLUTICASONE 50 MCG/ACTUATION * Use 1 Harts in each nostril t* OMEPRAZOLE 40 MG CAPSULE,MISHA* Take 1 capsule by mouth once * SOLIFENACIN 5 MG TABLET Take 1 tablet by mouth once d* LUTEIN 20 MG CAPSULE Take 1 capsule by mouth. * CALTRATE 600 600 MG CALCIUM (* with Vitamin D. Take two tab* * MULTIVITAMIN CAPSULE Problem List As Of Date 10/19/2017 Noted Resolved BLADDER DISORDER NEC [596.8] INVALID FOR* ATROPHIC VAGINITIS [N95.2] INVALID FOR* SYMPTOMATIC FEMALE CLIMACTERIC STATE [N95.1] INVALID FOR* PAP SMEAR OF CERVIX W ASCUS [R87.610] INVALID FOR* CERVICAL HPV DNA POSITIVE [R87.810] INVALID FOR* ESOPHAGITIS, UNSPECIFIED [K20.9] INVALID FOR* Ulcerative colitis (HCC) [K51.90] INVALID FOR* Hematuria [R31.9] INVALID FOR* Renal cyst [N28.1] INVALID FOR* Urethral pain [R39.89] INVALID FOR* Encounter Status:Closed by JAIME DUKES on 10/19/17 PROGRESS Observed: 10/05/2017 Status: COMPLETED Source: [place] 9:14 AM [facility] REPOSITORY O ID: [id number] Author: Ronal Hardy Service: (none) Author Type: Physician Type: Progress Notes Filed: 10/05/2017 9:38 AM Note Text: CC: Ulcerative colitis HPI: Alba Toribio is a 67 year old female. The patient has a history of left-sided ulcerative colitis since 1970. She has been on various mesalamine products as well as Azulfidine and has not tolerated any of them except for Asacol. On Asacol she is generally asymptomatic. She usually takes 1 or 2 per day occasionally 3. Recently she has been told that her Asacol will not be covered. I have written a letter of support for her which she will take to her insurance company. She should be getting colonoscopies more frequently but has been told about the potential risks of cancer and nonetheless agrees to colonoscopies only every 5 years which is actually coming up right now PAST MEDICAL HISTORY Diagnosis Date - Dizziness and giddiness - Esophagitis, unspecified - Other and unspecified ovarian cyst Ovarian cyst - Other ulcerative colitis - Papanicolaou smear of cervix with atypical squamous cells of undetermined significance (ASC-US) - Papanicolaou smear of cervix with atypical squamous cells of undetermined significance (ASC-US) - Ulcerative colitis, unspecified - Urinary tract infection, site not specified Recurrent UTI's - Vertigo PAST SURGICAL HISTORY Procedure Laterality Date - COLONOSCOP W/ OR W/O BRSH SPEC 09/18/83 Colonoscopy - COLONOSCOP W/ OR W/O BRSH SPEC 02/19/13 Colonoscopy - COLONOSCOPY W/BX 04/23/08 - EGD W/O BRSH SPECIMEN W/BX 04/23/08 - EGD W/O OR W/BRUSH/WASH 02/19/13 EGD - LIGATE FALLOPIAN TUBE Tubal ligation - NOSE SURGERY HX july 2013 polp removed from nose - PAST SURGICAL HISTORY OF 1975 DERMOID CYST REMOVED - TOTAL ABDOM HYSTERECTOMY 08/1991 SOCIAL HX: Social History Substance Use Topics - Smoking status: Never Smoker - Smokeless tobacco: Never Used - Alcohol use Yes Comment: social FAMILY HISTORY Problem Relation Age of Onset - Cancer Father BONE CANCER - Cancer Mother CANCER OF MOLE - Heart Mother HAS PACEMAKER/HYPERTENSION - Alzheimer's Disease Mother - Coronary Artery Disease Brother - Hypertension Sister - Macular Eye Degenteration [Other] [OTHER] Sister Two sister's ALLERGIES: ALLERGIES Allergen Reactions - Asa [Salicylates] GI Upset - Bee Stings [Other] - Sulfa (Sulfonamide * Hives MEDICATIONS: cholecalciferol (VITAMIN D-3) 5,000 unit tab Take 5,000 Units by mouth once daily. traZODone (DESYREL) 50 mg tablet TAKE 1/2 (ONE-HALF) TO 1 (ONE) TABLET BY MOUTH AT BEDTIME for sleep Estradiol (VAGIFEM) 10 mcg tab vaginal tablet Use 1 tab daily for 2 weeks AND then 2 times per week ongoing. mesalamine (ASACOL HD) 800 mg TbEC EC tablet Take 1 tablet by mouth three times daily. Ascorbic Acid (VITAMIN C) 1,000 mg tablet Take 1,000 mg by mouth once daily. fluticasone (FLONASE) 50 mcg/actuation nasal spray Use 1 Harts in each nostril twice daily. Omeprazole (PRILOSEC) 40 mg capsule Take 1 capsule by mouth once daily. solifenacin (VESICARE) 5 mg tablet Take 1 tablet by mouth once daily. Lutein 20 mg cap Take 1 capsule by mouth. calcium carbonate(CALTRATE 600 600 MG (1,500 MG) TAB) with Vitamin D. Take two tablets daily. MULTIVITAMIN CAP mesalamine (ASACOL HD) 800 mg TbEC EC tablet Take 1 tablet by mouth once daily. peg 3350-electrolytes (COLYTE) 240-22.72-6.72 -5.84 gram solution Take 4,000 mL by mouth one time only for 1 dose. mesalamine (ASACOL HD) 800 mg TbEC EC tablet Take 1 tablet by mouth three times daily for 30 days. Mesalamine (LIALDA) 1.2 gram EC tablet Take 1 tablet by mouth daily with breakfast for 30 days. mesalamine (PENTASA) 250 mg CR capsule Take 2 capsules by mouth four times daily for 30 days. Vaginal Lubricant (REPLENS) gel Use vaginally twice a week. vitamin e 1,000 unit capsule Take 1,000 Units by mouth once daily. ROS: All systems reviewed and negative except as above noted. PHYSICAL EXAM: VITALS: BP 186/98 Pulse 76 Ht 5' .236 (1.53m) Wt 128 lb 3.2 oz (58.2kg) BMI 24.84 kg/(m2). General Appearance: Well appearing, alert, in no acute distress, well-hydrated, well nourished.. Skin: Skin color, texture, turgor normal, no suspicious rashes or lesions. Eyes: Anicteric sclera. Pupils are equally round and reactive to light. Extraocular movements are intact. Nose/Sinuses: Nares normal, septum midline, mucosa normal, no drainage or sinus tenderness. Oropharynx: Lips, mucosa, and tongue normal, teeth and gingiva normal, oropharynx normal. Neck: Supple, no adenopathy; thyroid symmetric, normal size, no bruits. Back: good flexion and extension, good range of motion, no muscle tenderness, motor and sensory appear to be normal, no evidence of scoliosis. Lungs: Lungs clear to auscultation. No wheezing, rhonchi, rales. Heart: RRR without murmur, gallop, or rubs. No ectopy. Abdomen: Normal abdominal exam, Abdomen soft, non-tender. Bowel sounds normal. No masses, organomegaly. Extremities: No deformities, edema, skin discoloration, clubbing or cyanosis. . IMPRESSION: Many year history of left-sided ulcerative colitis. Doing well on Asacol at a low dose but needs more medicine and is in talks with her Medicare provider to get it. I have written a letter on her behalf. She needs a colonoscopy which will be scheduled PLAN: Continue Asacol Colonoscopy in the near future This note was partially generated using [employer] voice recognition system, and there may be some incorrect words, spellings, and punctuation that were not noted in checking the note before saving. Ronal Hardy MD CNOV Observed: 10/05/2017 Status: COMPLETED Source: [place] 8:00 AM [facility] REPOSITORY Office Visit (GASTTW) ALBA TORIBIO ([id number]) 1950 F Date Time Provider Department 10/05/17 8:00 AM RONAL HARDY During your visit today, we recorded the following information about you: Pulse Blood pressure Weight Height 76/minute 186/98 58.2 kg 1.53 m SILVIA LAUGHLIN MA 10/05/2017 8:43 AM Signed Patient was instructed to follow up with PCP or make a nurse visit within the next two weeks regarding elevated blood pressure. SILVIA LAUGHLIN MA October 05, 2017 8:43 AM Ronal Hardy MD 10/05/2017 9:38 AM Signed CC: Ulcerative colitis HPI: Alba Toribio is a 67 year old female. The patient has a history of left-sided ulcerative colitis since 1970. She has been on various mesalamine products as well as Azulfidine and has not tolerated any of them except for Asacol. On Asacol she is generally asymptomatic. She usually takes 1 or 2 per day occasionally 3. Recently she has been told that her Asacol will not be covered. I have written a letter of support for her which she will take to her insurance company. She should be getting colonoscopies more frequently but has been told about the potential risks of cancer and nonetheless agrees to colonoscopies only every 5 years which is actually coming up right now PAST MEDICAL HISTORY Diagnosis Date - Dizziness and giddiness - Esophagitis, unspecified - Other and unspecified ovarian cyst Ovarian cyst - Other ulcerative colitis - Papanicolaou smear of cervix with atypical squamous cells of undetermined significance (ASC-US) - Papanicolaou smear of cervix with atypical squamous cells of undetermined significance (ASC-US) - Ulcerative colitis, unspecified - Urinary tract infection, site not specified Recurrent UTI's - Vertigo PAST SURGICAL HISTORY Procedure Laterality Date - COLONOSCOP W/ OR W/O BRSH SPEC 09/18/83 Colonoscopy - COLONOSCOP W/ OR W/O BRSH SPEC 02/19/13 Colonoscopy - COLONOSCOPY W/BX 04/23/08 - EGD W/O BRSH SPECIMEN W/BX 04/23/08 - EGD W/O OR W/BRUSH/WASH 02/19/13 EGD - LIGATE FALLOPIAN TUBE Tubal ligation - NOSE SURGERY HX july 2013 polp removed from nose - PAST SURGICAL HISTORY OF 1975 DERMOID CYST REMOVED - TOTAL ABDOM HYSTERECTOMY 08/1991 SOCIAL HX: Social History Substance Use Topics - Smoking status: Never Smoker - Smokeless tobacco: Never Used - Alcohol use Yes Comment: social FAMILY HISTORY Problem Relation Age of Onset - Cancer Father BONE CANCER - Cancer Mother CANCER OF MOLE - Heart Mother HAS PACEMAKER/HYPERTENSION - Alzheimer's Disease Mother - Coronary Artery Disease Brother - Hypertension Sister - Macular Eye Degenteration [Other] [OTHER] Sister Two sister's ALLERGIES: ALLERGIES Allergen Reactions - Asa [Salicylates] GI Upset - Bee Stings [Other] - Sulfa (Sulfonamide * Hives MEDICATIONS: cholecalciferol (VITAMIN D-3) 5,000 unit tab Take 5,000 Units by mouth once daily. traZODone (DESYREL) 50 mg tablet TAKE 1/2 (ONE-HALF) TO 1 (ONE) TABLET BY MOUTH AT BEDTIME for sleep Estradiol (VAGIFEM) 10 mcg tab vaginal tablet Use 1 tab daily for 2 weeks AND then 2 times per week ongoing. mesalamine (ASACOL HD) 800 mg TbEC EC tablet Take 1 tablet by mouth three times daily. Ascorbic Acid (VITAMIN C) 1,000 mg tablet Take 1,000 mg by mouth once daily. fluticasone (FLONASE) 50 mcg/actuation nasal spray Use 1 Harts in each nostril twice daily. Omeprazole (PRILOSEC) 40 mg capsule Take 1 capsule by mouth once daily. solifenacin (VESICARE) 5 mg tablet Take 1 tablet by mouth once daily. Lutein 20 mg cap Take 1 capsule by mouth. calcium carbonate(CALTRATE 600 600 MG (1,500 MG) TAB) with Vitamin D. Take two tablets daily. MULTIVITAMIN CAP mesalamine (ASACOL HD) 800 mg TbEC EC tablet Take 1 tablet by mouth once daily. peg 3350-electrolytes (COLYTE) 240-22.72-6.72 -5.84 gram solution Take 4,000 mL by mouth one time only for 1 dose. mesalamine (ASACOL HD) 800 mg TbEC EC tablet Take 1 tablet by mouth three times daily for 30 days. Mesalamine (LIALDA) 1.2 gram EC tablet Take 1 tablet by mouth daily with breakfast for 30 days. mesalamine (PENTASA) 250 mg CR capsule Take 2 capsules by mouth four times daily for 30 days. Vaginal Lubricant (REPLENS) gel Use vaginally twice a week. vitamin e 1,000 unit capsule Take 1,000 Units by mouth once daily. ROS: All systems reviewed and negative except as above noted. PHYSICAL EXAM: VITALS: BP 186/98 Pulse 76 Ht 5' .236 (1.53m) Wt 128 lb 3.2 oz (58.2kg) BMI 24.84 kg/(m2). General Appearance: Well appearing, alert, in no acute distress, well-hydrated, well nourished.. Skin: Skin color, texture, turgor normal, no suspicious rashes or lesions. Eyes: Anicteric sclera. Pupils are equally round and reactive to light. Extraocular movements are intact. Nose/Sinuses: Nares normal, septum midline, mucosa normal, no drainage or sinus tenderness. Oropharynx: Lips, mucosa, and tongue normal, teeth and gingiva normal, oropharynx normal. Neck: Supple, no adenopathy; thyroid symmetric, normal size, no bruits. Back: good flexion and extension, good range of motion, no muscle tenderness, motor and sensory appear to be normal, no evidence of scoliosis. Lungs: Lungs clear to auscultation. No wheezing, rhonchi, rales. Heart: RRR without murmur, gallop, or rubs. No ectopy. Abdomen: Normal abdominal exam, Abdomen soft, non-tender. Bowel sounds normal. No masses, organomegaly. Extremities: No deformities, edema, skin discoloration, clubbing or cyanosis. . IMPRESSION: Many year history of left-sided ulcerative colitis. Doing well on Asacol at a low dose but needs more medicine and is in talks with her Medicare provider to get it. I have written a letter on her behalf. She needs a colonoscopy which will be scheduled PLAN: Continue Asacol Colonoscopy in the near future This note was partially generated using [employer] voice recognition system, and there may be some incorrect words, spellings, and punctuation that were not noted in checking the note before saving. Ronal Hardy MD Referring Provider: FREDIS VASQUEZ [[id number]] Allergies As of Date: 10/05/2017 Noted Allergy Reaction ASA (SALICYLATES) 07/19/2005 8 - GI Upset BEE STINGS [Other] 07/19/2005 SULFA (SULFONAMIDE ANTIBIOTICS) 07/19/2005 4 - Hives Date Reviewed: 10/05/2017 Reviewed by: Silvia Laughlin - Fully Assessed Reason for Visit: Consult [502] Cmt: Ulcerative colitis Primary Visit Diagnosis:Ulcerative colitis without complications, unspecified location ([facility]) [K51.90] Order(s):mesalamine (ASACOL HD) 800 mg TbEC EC tabletTake 1 tablet by mouth once daily.Disp: 30 tabletRfl: 2 COLONOSCOPY - DIAGNOSTIC [[id number]] Order #: [id number] FUTURE peg 3350-electrolytes (COLYTE) 240-22.72-6.72 -5.84 gram solutionTake 4,000 mL by mouth one time only for 1 dose.Disp: 1 BottleRfl: 0 Prescriptions as of 10/05/2017 Sig: CHOLECALCIFEROL (VITAMIN D3) * Take 5,000 Units by mouth onc* TRAZODONE 50 MG TABLET TAKE 1/2 (ONE-HALF) TO 1 (ONE* ESTRADIOL 10 MCG VAGINAL TABL* Use 1 tab daily for 2 weeks AND* MESALAMINE 800 MG TABLET,MISHA* Take 1 tablet by mouth three * ASCORBIC ACID (VITAMIN C) 1,0* Take 1,000 mg by mouth once d* FLUTICASONE 50 MCG/ACTUATION * Use 1 Harts in each nostril t* OMEPRAZOLE 40 MG CAPSULE,MISHA* Take 1 capsule by mouth once * SOLIFENACIN 5 MG TABLET Take 1 tablet by mouth once d* LUTEIN 20 MG CAPSULE Take 1 capsule by mouth. * CALTRATE 600 600 MG CALCIUM (* with Vitamin D. Take two tab* * MULTIVITAMIN CAPSULE MESALAMINE 800 MG TABLET,MISHA* Take 1 tablet by mouth once d* PEG 3350 240 GRAM-ELECTROLYTE* Take 4,000 mL by mouth one ti* POLYCARBOPHIL VAGINAL GEL Use vaginally twice a week. VITAMIN E 1,000 UNIT CAPSULE Take 1,000 Units by mouth onc* Medication notes this encounter CHOLECALCIFEROL (VITAMIN D3) 5,000 UNIT TABLET >> SILVIA LAUGHLIN MA 10/05/2017 7:59 AM >> SILVIA LAUGHLIN SunOct 05, 2017 7:59 AM Every other day TRAZODONE 50 MG TABLET >> SILVIA LAUGHLIN MA 10/05/2017 8:01 AM >> SILVIA LAUGHLIN SunOct 05, 2017 8:01 AM PRN ASCORBIC ACID (VITAMIN C) 1,000 MG TABLET >> SILVIA LAUGHLIN MA 10/05/2017 7:59 AM >> SILVIA LAUGHLIN SunOct 05, 2017 7:59 AM In winter months Problem List As Of Date 10/05/2017 Noted Resolved BLADDER DISORDER NEC [596.8] INVALID FOR* ATROPHIC VAGINITIS [N95.2] INVALID FOR* SYMPTOMATIC FEMALE CLIMACTERIC STATE [N95.1] INVALID FOR* PAP SMEAR OF CERVIX W ASCUS [R87.610] INVALID FOR* CERVICAL HPV DNA POSITIVE [R87.810] INVALID FOR* ESOPHAGITIS, UNSPECIFIED [K20.9] INVALID FOR* Ulcerative colitis (HCC) [K51.90] INVALID FOR* Hematuria [R31.9] INVALID FOR* Renal cyst [N28.1] INVALID FOR* Urethral pain [R39.89] INVALID FOR* Visit Notes: >> Silvia OchoaDesmond Laughlin SunOct 05, 2017 8:43 AM Status: Signed Patient was instructed to follow up with PCP or make a nurse visit within the next two weeks regarding elevated blood pressure. SILVIA LAUGHLIN MA October 05, 2017 8:43 AM Prescriptions ordered this encounter Disp Refills Start End MESALAMINE 800 MG TABLET,DELAYED REL* 30 t* 2 10/05/2017 Route: ORAL Sig: Take 1 tablet by mouth once daily. PEG 3350 240 GRAM-ELECTROLYTES 22.72* 1 Jose De Jesus* 0 10/05/2017 10/05/2017 Route: ORAL Sig: Take 4,000 mL by mouth one time only for 1 dose. Encounter Status:Closed by RONAL HARDY MD on 10/05/17 CNCO Observed: 10/05/2017 Status: COMPLETED Source: [place] 12:00 AM [facility] REPOSITORY Letter Text Department of Gastroenterology 10/05/2017 Alba Toribio CC#[id number] [address] [place] [address] To Whom It May Concern: Ms. Toribio is under my care for the treatment of her ulcerative colitis. She has had ulcerative colitis since 1970. She has tried all of the various medications for ulcerative colitis and has been intolerant or allergic to all of them. The only medicine that has ever worked for her is Asacol. She has tolerated Asacol for the last several years without incident and it has kept her illness in check. As she has become a Medicare recipient, she is told that her Asacol will longer be covered. Clearly, this situation is unsatisfactory as Asacol is the only medication that can keep her disease in control I would implore you to reconsider your decision. I would be more than happy to answer any questions that you might have. Sincerely, Ronal Hardy M.D. Radio Operator [facility] CBC W/DIFF, AUTOMATED Collected: 08/14/2017 Status: F Source: [place] 7:54 AM [facility] REPOSITORY TYPE CODE TESTS RESULT OUT OF RANGE REFERENCE UNITS LAB L100.1000 4.4-11.0 K/mm3 Normal WBC 6.7 LAB L100.1200 4.2-5.4 M/mm3 Normal RBC 4.87 LAB L100.1300 12.0-15.0 g/dl Normal HGB 14.0 LAB L100.1400 37-47 % Normal HCT 43.3 LAB L100.1500 81-99 fL Normal MCV 88.9 LAB L100.1600 27.0-32.0 pg Normal MCH 28.7 LAB L100.1700 32-36 g/gl Normal MCHC 32.3 LAB L100.1810 11.6-14.6 % Normal RDW CV 13.7 LAB L100.1820 35.1-43.9 fl High RDW SD 44.6 LAB L100.1900 150-450 K/mm3 Normal PLT 348 LAB L100.2000 6.2-12.0 fl Normal MPV 10.7 LAB L100.2100 47-70 % Normal NEUT% 63.7 LAB L100.2200 19-41 % Normal LY% 26.0 LAB L100.2300 0-10 % Normal MONO% 5.9 LAB L100.2400 0-5 % Normal EO% 3.9 LAB L100.2500 0-1 % Normal BASO% 0.4 LAB L100.2550 0.0-0.9 % Normal IM GRAN % 0.100 Result Comment: IG% - Immature Granulocytes (promyelocytes, myelocytes and metamyelocytes) > 1% indicates that a LEFT SHIFT is Present. LAB L100.2620 2.0-7.7 X10 3/uL Normal Absolute Neut 4.3 LAB L100.2720 0.83-4.51 X10 3/ul Normal Absolute Lymph 1.75 Performed By: #### L100.0100 #### [facility] [address] [place], [place], [address] BASIC METABOLIC Collected: 08/14/2017 Status: F Source: [place] PROFILE ([facility]) 7:54 AM [facility] REPOSITORY TYPE CODE TESTS RESULT OUT OF RANGE REFERENCE UNITS LAB L501.0100 74-106 mg/dL Normal GLU 89 Result Comment: Please note revised GLUCOSE reference range effective 2017. LAB L501.1000 7-18 mg/dL Normal BUN 13 LAB L501.1100 0.55-1.02 mg/dL Normal CREAT,SERUM 0.92 Result Comment: The validity of the calculated GFR AND GFRAA in patients over 70 years has not been determined. Clinical correlation is essential. LAB L501.1110 >60 mL/min Normal EST GFR 65 Result Comment: Non- GFR Calc LAB L501.1115 >60 mL/min Normal EST GFR - AA 78 Result Comment: GFR Calc LAB L501.1300 10-20 RATIO Normal BUN/CRE 14.1 LAB L501.2200 8.5-10.1 mg/dL CA Normal 9.2 LAB L501.5300 136-145 mmol/L NA Normal 141 LAB L501.5600 3.5-5.1 mmol/L K Normal 4.0 LAB L501.5900 98-107 mmol/L CL Normal 106 LAB L501.6100 21.0-32.0 mmol/L Normal CO2 28.0 LAB L501.6200 5-15 Normal GAP 7 Performed By: #### L500.2500, L500.4100, L501.9520, L506.0400 #### [facility] [address] [place], [place], [address] LIPID PROFILE Collected: 08/14/2017 Status: F Source: [place] 7:54 AM [facility] REPOSITORY TYPE CODE TESTS RESULT OUT OF RANGE REFERENCE UNITS LAB L501.4900 200 mg/dL High CHOL 228 Result Comment: <200 mg/dL Desirable 200-240 mg/dL Borderline >240 mg/dL High Risk LAB L501.5000 mg/dL Normal TRIG 96 Result Comment: The drugs N-Acetylcysteine and Metamizole may falsely depress this assay. Serum Triglycerides Reference Interval Normal <150 mg/dL Borderline high 150 - 199 mg/dL High 200 - 499 mg/dL Very High > or = 500 mg/dL LAB L501.6400 mg/dL Normal HDL 71 Result Comment: The drugs N-Acetylcysteine and Metamizole may falsely depress this assay. Reference Range HDL <40 mg/dL Low HDL Cholesterol HDL >or= 60 mg/dL High HDL Cholesterol LAB L501.6500 0-130 mg/dL High LDL 138 LAB L501.6600 5-40 mg/dL Normal VLDL 19 Performed By: #### L500.2500, L500.4100, L501.9520, L506.0400 #### [facility] [address] [place], [place], [address] THYROID STIM HORMONE Collected: 08/14/2017 Status: F Source: [place] ([facility]) 7:54 AM [facility] REPOSITORY TYPE CODE TESTS RESULT OUT OF RANGE REFERENCE UNITS LAB L501.9520 0.358-3.74 uIU/mL Normal TSH 1.81 Performed By: #### L500.2500, L500.4100, L501.9520, L506.0400 #### [facility] [address] [place], [address] T4 FREE DIRECT Collected: 08/14/2017 Status: F Source: [place] 7:54 AM [facility] REPOSITORY TYPE CODE TESTS RESULT OUT OF RANGE REFERENCE UNITS LAB L506.0400 0.76-1.46 ng/dL Normal T4 FREE 1.19 DIRECT Performed By: #### L500.2500, L500.4100, L501.9520, L506.0400 #### [facility] [address] [place], [address] VITAMIN D,25 HYDROXY Collected: 08/14/2017 Status: F Source: [place] 7:54 AM [facility] REPOSITORY TYPE CODE TESTS RESULT OUT OF RANGE REFERENCE UNITS LAB L506.1000 29.95-100.01 ng/mL Normal Vitamin D 85.8 25-OH Result Comment: Vitamin D 25(OH) Status Range Deficiency <20 ng/mL (50nmol/L) Insuffciency 20 - 30 ng/mL (50 - 75 nmol/L) Sufficiency 30 - 100 ng/mL (75 - 250 nmol/L) Toxicity >100 ng/mL (>250 nmol/L) Performed By: #### L506.1000 #### [facility] [address] [place], [address] ALLERGIES ALLERGIES DATE TYPE / CODE NAME / CODE REACTION SEVERITY SOURCE 11/14/2017 Drug Sulfa Hives [facility] Allergy/[id number]( (Sulfonamide Community SNOMED CT) Antibiotics)/F00 Hospital 0179443(RXNORM) Repository 11/14/2017 Drug aspirin/[id number] headaches, [facility] Allergy/667990753( 87(RXNORM) nausea Community SNOMED CT) Hospital Repository 07/19/2005 Drug SALICYLATES GI UPSET [place] Class/980290715(SN Clinic Main OMED CT) [place] Repository 07/19/2005 Miscellaneous OTHER [place] Allergy/048520325( Clinic Main SNOMED CT) [place] Repository 07/19/2005 Drug SULFA HIVES [place] Class/392954488(SN (SULFONAMIDE Clinic Main OMED CT) ANTIBIOTICS) [place] Repository ENCOUNTERS ENCOUNTERS ADMIT/DISCHARGE ACCOUNT ADMITTING ENCOUNTER LOCATION SOURCE NUMBER CLASS 02/27/2018 [id number] [facility] ing:BFHLAB Repository 02/19/2018 [id number] Ambulatory BMSBuilding:W [facility] Repository 02/19/2018 [id number] Ambulatory [facility] ing:CVS Repository 01/23/2018 [id number] Ambulatory [facility] ing:MTLAB Repository 01/14/2018/01/15/20 [id number] HARDY [address] [place] Repository 12/26/2017 [id number] [facility] 11/14/2017/11/15/19 [id number] Ambulatory BMSBuilding:B [place] [address] Repository 10/05/2017/10/09/19 [id number] Ambulatory [address] Repository 08/14/2017 [id number] [facility] PAYERS PAYERS ENCOUNTER GUARANTOR PAYER SUBSCRIBER SOURCE 02/27/2018 ALBA Isaacs Primary ALBA Martinooster [id number] Insurance:HUMANA VARNSDOB: Community [place] [employer] [place]olicy [id number] Number: Repository [address]Esm: 330 [id number] [phone] () Date:[id number] [address]AU: 02/27/2018 Secondary NOT GIVENUNK [place] Insurance:SELF PAY [facility] Number: Effective Repository Date:2018-02-27 02/19/2018 ALBA S Primary ALBA S [place] [id number] Insurance:HUMANA VARNSDOB: Community [place] [employer] PPOPolicy [id number] Number: Repository [address]Egp: 330 [id number] [phone] () Date:[id number] [address]EZ: 02/19/2018 Secondary NOT GIVENUNK [place] Insurance:SELF PAY [facility] Number: Effective Repository Date:2018-02-19 02/19/2018 ALBA S Primary ALBA S [place] [id number] Insurance:HUMANA VARNSDOB: Community [employer] [employer] PPOPolicy [id number] Number: Repository [address]Len: 330 [id number] [phone] () Date:[id number] [address]YJ: 02/19/2018 Secondary NOT GIVENUNK [place] Insurance:SELF PAY [facility] Number: Effective Repository Date:2018-02-08 01/23/2018 ALBA S Primary ALBA S [place] [id number] Insurance:HUMANA VARNSDOB: Community [place] [employer] PPOPolicy [id number] [place] Number: Repository [address]Gxj: 330 [id number] [phone] () Date:6368-67-93HQ [address] [address]UZ: 01/23/2018 Secondary NOT GIVENUNK [place] Insurance:SELF PAY [facility] Number: Effective Repository Date:2018-01-23 12/26/2017 ALBA S Primary ALBA S [place] [id number] Insurance:HUMANA VARNSDOB: Community [place] [employer] PPOPolicy [id number] [place] Number: Repository [address]Ijf: 330 [id number] [phone] () Date:9738-49-29UV [address] [address]GJ: 12/26/2017 Secondary NOT GIVENUNK [place] Insurance:SELF PAY [facility] Number: Effective Repository Date:2017-11-14 11/14/2017 ALBA S Primary ALBA S [place] [id number] Insurance:HUMANA VARNSDOB: Community [employer] [employer] PPOPolicy [id number] Number: Repository [address]Cve: 330 [id number] [phone] () Date:2798-37-06DW [address] [address]CH: 11/14/2017 Secondary NOT GIVENUNK [place] Insurance:SELF PAY [facility] Number: Effective Repository Date:2017-11-14 08/14/2017 ALBA S Primary ALBA S [place] [id number] Insurance:HUMANA VARNSDOB: Community [place] [employer] PPOPolicy [id number] Number: Repository [id number]: [phone] [id number] [phone] () Date:6371-62-21GM [address] [place] [address]XW: 08/14/2017 Secondary NOT GIVENUNK [place] Insurance:SELF PAY [facility] Number: Effective Repository Date:2017-08-14
== END ==
PROVIDERS: Family Provider Family Medicine; PCP Family Medicine; Visit Provider Family Medicine
DX: I49.9 Cardiac arrhythmia, unspecified (principal); E87.6 Hypokalemia
CPT/HCPCS: 36415; 80048

== ENCOUNTER → 2018-09-18 | Outpatient (CLI) | payer MEDICARE, SELFPAY | END | disposition home or self-care (01) | LOC: BFHLAB 13:58 | PROVIDERS: Family Provider Family Medicine; PCP Family Medicine; Visit Provider Family Medicine | DX: R30.0 Dysuria (principal) | CPT/HCPCS: 87077; 87086; 87088; 87186 ==

== ENCOUNTER → 2018-09-25 | Outpatient (CLI) | payer MEDICARE, SELFPAY ==
[2018-09-25 12:42] LABS: Anion Gap 9 (5-15); BUN 15 mg/dL (7-18); BUN/Creat Ratio 17.3 RATIO (10-20); Calcium,Total 9.1 mg/dL (8.5-10.1); Chloride 104 mmol/L (98-107); Creatinine, Serum 0.87 mg/dL (0.55-1.02); EST Glomerular Filtration Rate 69 mL/min (>60); Est Glom Filt Rate - Afr Amer 84 mL/min (>60); Glucose 93 mg/dL (74-106); Magnesium 2.2 mg/dL (1.6-2.6); Sodium Level 140 mmol/L (136-145)
[2018-09-25 12:54] LABS: Vitamin D,25 Hydroxy 70.6 ng/mL (29.95-100.01)
== END | disposition home or self-care (01) ==
LOC: BFHLAB 10:42
PROVIDERS: Family Provider Family Medicine; PCP Family Medicine; Visit Provider Family Medicine
DX: E87.6 Hypokalemia (principal); E55.9 Vitamin D deficiency, unspecified
CPT/HCPCS: 36415; 80048; 82306; 83735

== ENCOUNTER → 2020-07-20 15:54 | Outpatient (CLI) | payer MEDICARE, SELFPAY ==
[2020-07-20 18:12] LABS: Absolute Lymphocyte Count 2.53 X10^3/uL (0.83-4.51); Absolute Neutrophil Count 5.8 X10^3/uL (2.0-7.7); Basophil# 0.04 X10^3/uL; Basophil% 0.4 % (0-1); Eosinophil# 0.28 X10^3/uL; Hematocrit 39.1 % (37-47); Hemoglobin 12.1 g/dL (12.0-15.0); Lymphocyte # 2.53 X10^3/ul (0.83-4.51); Lymphocyte % 27.3 % (19-41); Mean Corp Hgb Conc 30.9 g/dL (32-36); Mean Corpuscular Hgb 27.9 pg (27.0-32.0); Mean Corpuscular Volume 90.3 fL (81-99); Monocyte# 0.63 X10^3/uL; Monocyte% 6.8 % (0-10); NRBC Flagged by Analyzer 0 % (0-5); Neutrophil # 5.76 X10^3/uL (2.7-7.7); Neutrophil % 62.3 % (47-70); Platelet Count 344 K/mm3 (150-450); RBC Distribution Width CV 13.4 % (11.6-14.6); RBC Distribution Width SD 44.8 fl (35.1-43.9); Red Blood Count 4.33 M/mm3 (4.2-5.4); White Blood Count 9.3 K/mm3 (4.4-11.0)
[2020-07-20 18:38] LABS: Vitamin D,25 Hydroxy 67.2 ng/mL
[2020-07-20 18:47] LABS: ALB/GLOB Ratio 0.9 RATIO (0.9-2.4); AST(SGOT) 14 U/L (15-37); Alanine Aminotransfer ALT/SGPT 17 U/L (13-56); Albumin, Serum 3.6 g/dL (3.2-5.0); Alkaline Phosphatase 83 U/L (45-117); Anion Gap 5 (5-15); BUN 9 mg/dL (7-18); BUN/Creat Ratio 9.9 RATIO (10-20); Calcium,Total 8.9 mg/dL (8.5-10.1); Chloride 99 mmol/L (98-107); Creatinine, Serum 0.91 mg/dL (0.55-1.02); EST Glomerular Filtration Rate 65 mL/min (>60); Est Glom Filt Rate - Afr Amer 79 mL/min (>60); Globulin 3.8 g/dL (2.2-4.2); Glucose 99 mg/dL (74-106); Magnesium 2.1 mg/dL (1.6-2.6); Potassium 3.2 mmol/L (3.5-5.1); Protein, Total 7.4 g/dL (6.4-8.2); Sodium Level 131 mmol/L (136-145); T4 Free Direct 1.07 ng/dL (0.76-1.46); Thyroid Stim Hormone (TSH) 1.61 uIU/mL (0.358-3.74)
== END ==
PROVIDERS: PCP Family Medicine; Referring Provider Family Medicine; Visit Provider Family Medicine
DX: K51.90 Ulcerative colitis, unspecified, without complications (principal); I49.9 Cardiac arrhythmia, unspecified; E87.6 Hypokalemia; E55.9 Vitamin D deficiency, unspecified
CPT/HCPCS: 36415; 80053; 82306; 83735; 84439; 84443; 85025

== ENCOUNTER → 2020-08-23 08:41 | Outpatient (CLI) | payer MEDICARE, SELFPAY ==
[2020-07-21 13:05] VITALS: BMI 23.1
--- NOTE | 2020-08-23 08:44 | BI_ITS ---
MAMMOGRAPHY - BILATERAL SCREENING REASON FOR EXAM: Female, 70 years old. Routine annual screening examination. PERTINENT HISTORY: Non-contributory. TECHNIQUE: Digital bilateral breast tim (3D mammographic acquisition) in the CC and MLO projections. 2-D mediolateral oblique (MLO) and craniocaudad (CC) views of both breasts were obtained. CAD: Full Field Digital Mammography with Computer Added Detection was performed. COMPARISON: Comparison is made with prior study dated 12/26/2017 and 11/13/2012. FINDINGS: Breast Composition: The breasts are heterogeneously dense, which may obscure small masses. There are no dominant masses or suspicious calcifications. No other significant abnormalities are identified. There has been no significant change since the prior study. BI/SCRN MAMM (CAD)W/TIM BILAT IMPRESSION: Stable bilateral screening mammogram. Yearly follow-up mammogram recommended. (A) ASSESSMENT CATEGORY: BIRADS Category 1: Negative. A letter regarding these results will be sent to the patient by the facility within 30 days. Approximately 10% of breast cancers are not detected by mammography. A normal mammogram should not delay biopsy of a clinically suspicious abnormality. [id number] Electronically Signed: Javon Bennett MD at 9:44 EDT , Service support ,
== END ==
PROVIDERS: PCP Family Medicine; Referring Provider Nurse Practitioner Women's Health; Visit Provider Nurse Practitioner Women's Health
DX: Z12.31 Encounter for screening mammogram for malignant neoplasm of breast (principal)
CPT/HCPCS: 77063; 77067

== ENCOUNTER → 2021-08-30 | Outpatient (CLI) | payer MEDICARE, SELFPAY ==
[2021-08-30 12:50] LABS: Anion Gap 4 (5-15); BUN 11 mg/dL (7-18); BUN/Creat Ratio 12.5 RATIO (10-20); Calcium,Total 9.4 mg/dL (8.5-10.1); Chloride 104 mmol/L (98-107); Creatinine, Serum 0.88 mg/dL (0.55-1.02); EST Glomerular Filtration Rate 67 mL/min (>60); Est Glom Filt Rate - Afr Amer 81 mL/min (>60); Glucose 98 mg/dL (74-106); Magnesium 2.3 mg/dL (1.6-2.6); Potassium 4.1 mmol/L (3.5-5.1); Sodium Level 136 mmol/L (136-145)
[2021-08-30 13:05] LABS: Vitamin D,25 Hydroxy 102.2 ng/mL
== END | disposition home or self-care (01) ==
LOC: MTLAB 10:46
PROVIDERS: PCP Family Medicine; Referring Provider Family Medicine; Visit Provider Family Medicine
DX: E55.9 Vitamin D deficiency, unspecified (principal); E87.6 Hypokalemia
CPT/HCPCS: 36415; 80048; 82306; 83735

== ENCOUNTER → 2021-09-05 | Outpatient (CLI) | payer MEDICARE, SELFPAY ==
--- NOTE | 2021-09-05 10:52 | BI_ITS ---
MAMMOGRAPHY - BILATERAL SCREENING REASON FOR EXAM: Female, 71 years old. Routine annual screening examination. PERTINENT HISTORY: Non-contributory. TECHNIQUE: Digital bilateral breast tim (3D mammographic acquisition) in the CC and MLO projections. 2-D mediolateral oblique (MLO) and craniocaudad (CC) views of both breasts were obtained. CAD: Full Field Digital Mammography with Computer Added Detection was performed. COMPARISON: Comparison is made with prior study dated 08/23/2020 and 12/26/2017. FINDINGS: Breast Composition: The breasts are heterogeneously dense, which may obscure small masses. There are no dominant masses or suspicious calcifications. No other significant abnormalities are identified. There has been no significant change since the prior study. BI/SCRN MAMM (CAD)W/TIM BILAT IMPRESSION: Stable bilateral screening mammogram. Yearly follow-up mammogram recommended. (A) ASSESSMENT CATEGORY: BIRADS Category 1: Negative. A letter regarding these results will be sent to the patient by the facility within 30 days. Approximately 10% of breast cancers are not detected by mammography. A normal mammogram should not delay biopsy of a clinically suspicious abnormality. [id number] Electronically Signed: Javon Bennett MD at 12:54 EDT ,
== END | disposition home or self-care (01) ==
PROVIDERS: PCP Family Medicine; Referring Provider Nurse Practitioner Women's Health; Visit Provider Nurse Practitioner Women's Health
DX: Z12.31 Encounter for screening mammogram for malignant neoplasm of breast (principal)
CPT/HCPCS: 77063; 77067

== ENCOUNTER → 2021-10-19 | Outpatient (CLI) | payer MEDICARE, SELFPAY | END | disposition home or self-care (01) | PROVIDERS: PCP Family Medicine; Visit Provider Family Medicine | DX: N39.0 Urinary tract infection, site not specified (principal) | CPT/HCPCS: 87077; 87086; 87088; 87186 ==

== ENCOUNTER → 2021-11-29 | Outpatient (CLI) | payer MEDICARE, SELFPAY ==
[2021-11-29 18:11] LABS: Vitamin D,25 Hydroxy 84.1 ng/mL
== END | disposition home or self-care (01) ==
LOC: MTLAB 14:20
PROVIDERS: PCP Family Medicine; Referring Provider Family Medicine; Visit Provider Family Medicine
DX: E55.9 Vitamin D deficiency, unspecified (principal)
CPT/HCPCS: 36415; 82306

== ENCOUNTER → 2022-09-05 | Outpatient (CLI) | payer MEDICARE, SELFPAY ==
[2022-09-05 12:33] LABS: Absolute Lymphocyte Count 1.48 X10^3/uL (0.83-4.51); Absolute Neutrophil Count 4.2 X10^3/uL (2.0-7.7); Basophil# 0.03 X10^3/uL; Basophil% 0.5 % (0-1); Eosinophil# 0.29 X10^3/uL; Eosinophils% 4.5 % (0-5); Hematocrit 41.1 % (37-47); Hemoglobin 12.9 g/dL (12.0-15.0); Lymphocyte # 1.48 X10^3/ul (0.83-4.51); Lymphocyte % 22.7 % (19-41); Mean Corp Hgb Conc 31.4 g/dL (32-36); Mean Corpuscular Hgb 29.1 pg (27.0-32.0); Mean Corpuscular Volume 92.6 fL (81-99); Mean Platelet Vol. 10.7 fl (6.2-12.0); Monocyte# 0.49 X10^3/uL; Monocyte% 7.5 % (0-10); NRBC Flagged by Analyzer 0 % (0-5); Neutrophil % 64.5 % (47-70); Platelet Count 391 K/mm3 (150-450); RBC Distribution Width SD 43.8 fl (35.1-43.9); Red Blood Count 4.44 M/mm3 (4.2-5.4); White Blood Count 6.5 K/mm3 (4.4-11.0)
[2022-09-05 12:48] LABS: AST(SGOT) 20 U/L (15-37); Alanine Aminotransfer ALT/SGPT 19 U/L (13-56); Albumin, Serum 3.9 g/dL (3.2-5.0); Alkaline Phosphatase 70 U/L (45-117); Anion Gap 4 (5-15); BUN 12 mg/dL (7-18); BUN/Creat Ratio 12.5 RATIO (10-20); Chloride 105 mmol/L (98-107); Cholesterol 214 mg/dL (200); Creatinine, Serum 0.96 mg/dL (0.55-1.02); EST Glomerular Filtration Rate 61 mL/min (>60); Est Glom Filt Rate - Afr Amer 73 mL/min (>60); Globulin 3.8 g/dL (2.2-4.2); Glucose 98 mg/dL (74-106); High Density Lipoprotein 81 mg/dL; Potassium 4.1 mmol/L (3.5-5.1); Protein, Total 7.7 g/dL (6.4-8.2); Sodium Level 136 mmol/L (136-145); Triglycerides 73 mg/dL; Very Low Density Lipoprotein 15 mg/dL (5-40)
[2022-09-05 12:52] LABS: Vitamin D,25 Hydroxy 68.3 ng/mL
== END | disposition home or self-care (01) ==
LOC: BFHLAB 10:01
PROVIDERS: PCP Nurse Practitioner Family; Referring Provider Nurse Practitioner Family; Visit Provider Nurse Practitioner Family
DX: E55.9 Vitamin D deficiency, unspecified (principal); K51.90 Ulcerative colitis, unspecified, without complications; E87.6 Hypokalemia; M81.0 Age-related osteoporosis without current pathological fracture; E78.5 Hyperlipidemia, unspecified
CPT/HCPCS: 36415; 80053; 80061; 82306; 85025

== ENCOUNTER → 2022-10-04 | Outpatient (CLI) | payer MEDICARE, SELFPAY ==
--- NOTE | 2022-10-04 10:03 | BI_ITS ---
MAMMOGRAPHY - BILATERAL SCREENING REASON FOR EXAM: Female, 72 years old. Routine annual screening examination. PERTINENT HISTORY: Non-contributory. TECHNIQUE: Digital bilateral breast tim (3D mammographic acquisition) in the CC and MLO projections. 2-D mediolateral oblique (MLO) and craniocaudad (CC) views of both breasts were obtained. CAD: Full Field Digital Mammography with Computer Added Detection was performed. COMPARISON: Comparison is made with prior study dated September 05, 2021 and August 23, 2020. FINDINGS: Breast Composition: The breasts are heterogeneously dense, which may obscure small masses. There are no dominant masses or suspicious calcifications. Stable bilateral secretory calcification. No other significant abnormalities are identified. There has been no significant change since the prior study. BI/SCRN MAMM (CAD)W/TIM BILAT IMPRESSION: Stable bilateral screening mammogram. Yearly follow-up mammogram recommended. (A) ASSESSMENT CATEGORY: BIRADS Category 2: Benign. A letter regarding these results will be sent to the patient by the facility within 30 days. Approximately 10% of breast cancers are not detected by mammography. A normal mammogram should not delay biopsy of a clinically suspicious abnormality. [id number] Electronically Signed: Javon Bennett MD at 11:23 EDT ,
--- NOTE | 2022-10-04 10:10 | BD_ITS ---
STUDY: DUAL ENERGY X-RAY ABSORPTIOMETRY / DXA REASON FOR EXAM: Female, 72 years old. M81.0 TECHNIQUE: Bone Mineral Density (BMD) measurements of lumbar spine and bilateral hips were obtained. COMPARISON: Comparison is made with prior study dated December 21, 2015. FINDINGS: Lumbar Spine (L1-L4): g/cm2 (0.861) / T-score (-1.7) / Z-score (0.5) Findings are suggestive of osteopenia with a moderate fracture risk. Left Femur Total: g/cm2 (0.686) / T-score (-2.1) / Z-score (-0.5) Left Femoral Neck: g/cm2 (0.580) / T-score (-2.4) / Z-score (-0.5) Right Femur Total: g/cm2 (0.657) / T-score (-2.3) / Z-score (-0.8) Right Femoral Neck: g/cm2 (0.577) / T-score (-2.5) / Z-score (-0.6) The T-Scores on the most recent prior examination were: Lumbar Spine (L1-L4): There has been worsening of bone density since the previous examination. Left Femur Total: which represents a worsening of 11.4%. Right Femur Total: which represents a worsening of 15.8%. BD/Dexa Bone Density Study IMPRESSION: The patient is considered osteoporotic as outlined below according to World [place] Organization (WHO) criteria with a high fracture risk. There has been worsening of bone density since the previous examination. Reference Information: The T-score is the number of standard deviations above or below the standard which is normal for young adults at their peak bone mineral density. The World Health Organization (WHO) interprets the T-scores as follows: Above -1 Normal bone density Between -1 and -2.5 Osteopenia Equal to / or below -2.5 Osteoporosis As a practical clinical guideline, osteopenia may be graded as follows: Mild -1 through -1.5 Moderate -1.6 through -2.0 Severe -2.1 through -2.4 The Z-score is the number of standard deviations above or below age-matched controls. A Z-score of less than -1.5 would be considered abnormal. References: 1. NIH Osteoporosis and Related Bone Diseases www osteo.org 2. International Society for Clinical Densitometry www iscd.org 3. National Osteoporosis Foundation www nof.org Electronically Signed: Javon Bennett MD at 10:53 EDT ,
== END | disposition home or self-care (01) ==
LOC: OPBD 10:02
PROVIDERS: PCP Nurse Practitioner Family; Referring Provider Nurse Practitioner Family; Visit Provider Nurse Practitioner Family
DX: Z12.31 Encounter for screening mammogram for malignant neoplasm of breast (principal); E55.9 Vitamin D deficiency, unspecified; M81.0 Age-related osteoporosis without current pathological fracture
CPT/HCPCS: 77063; 77067; 77080

== ENCOUNTER → 2023-09-14 | Outpatient (CLI) | payer MEDICARE, SELFPAY ==
[2023-09-14 08:00] LABS: Absolute Lymphocyte Count 1.73 X10^3/uL (0.83-4.51); Absolute Neutrophil Count 2.4 X10^3/uL (2.0-7.7); Basophil# 0.03 X10^3/uL; Basophil% 0.6 % (0-1); Eosinophil# 0.32 X10^3/uL; Eosinophils% 6.5 % (0-5); Hematocrit 38.1 % (37-47); Hemoglobin 12.1 g/dL (12.0-15.0); Lymphocyte # 1.73 X10^3/ul (0.83-4.51); Lymphocyte % 35.3 % (19-41); Mean Corp Hgb Conc 31.8 g/dL (32-36); Mean Corpuscular Volume 91.4 fL (81-99); Mean Platelet Vol. 10.1 fl (6.2-12.0); Monocyte% 8.2 % (0-10); NRBC Flagged by Analyzer 0 % (0-5); Neutrophil # 2.41 X10^3/uL (2.7-7.7); Neutrophil % 49.2 % (47-70); Platelet Count 336 K/mm3 (150-450); RBC Distribution Width SD 43.4 fl (35.1-43.9); Red Blood Count 4.17 M/mm3 (4.2-5.4); White Blood Count 4.9 K/mm3 (4.4-11.0)
[2023-09-14 08:54] LABS: Vitamin D,25 Hydroxy 45.5 ng/mL
[2023-09-15 06:56] LABS: ALB/GLOB Ratio 1.1 RATIO (0.9-2.4); AST(SGOT) 18 U/L (15-37); Alanine Aminotransfer ALT/SGPT 16 U/L (13-56); Albumin, Serum 3.6 g/dL (3.2-5.0); Alkaline Phosphatase 60 U/L (45-117); Anion Gap 6 (5-15); BUN 8 mg/dL (7-18); BUN/Creat Ratio 9.4 RATIO (10-20); Calcium,Total 9.2 mg/dL (8.5-10.1); Chloride 103 mmol/L (98-107); Cholesterol 221 mg/dL (200); Creatinine, Serum 0.85 mg/dL (0.55-1.02); EST Glomerular Filtration Rate 70 mL/min (>60); Est Glom Filt Rate - Afr Amer 85 mL/min (>60); Globulin 3.4 g/dL (2.2-4.2); Glucose 96 mg/dL (74-106); High Density Lipoprotein 76 mg/dL; Potassium 3.8 mmol/L (3.5-5.1); Sodium Level 138 mmol/L (136-145); Triglycerides 85 mg/dL; Very Low Density Lipoprotein 17 mg/dL (5-40)
== END | disposition home or self-care (01) ==
LOC: LAB 07:01
PROVIDERS: PCP Nurse Practitioner Family; Referring Provider Nurse Practitioner Family; Visit Provider Nurse Practitioner Family
DX: I10 Essential (primary) hypertension (principal); E78.5 Hyperlipidemia, unspecified; E55.9 Vitamin D deficiency, unspecified
CPT/HCPCS: 36415; 80053; 80061; 82306; 85025

== ENCOUNTER → 2023-10-10 | Outpatient (CLI) | payer MEDICARE, SELFPAY ==
--- NOTE | 2023-10-10 10:22 | BI_ITS ---
MAMMOGRAPHY - BILATERAL SCREENING REASON FOR EXAM: Female, 73 years old. Routine annual screening examination. PERTINENT HISTORY: Non-contributory. TECHNIQUE: Digital bilateral breast tim (3D mammographic acquisition) in the CC and MLO projections. 2-D mediolateral oblique (MLO) and craniocaudad (CC) views of both breasts were obtained. CAD: Full Field Digital Mammography with Computer Added Detection was performed. COMPARISON: Comparison is made with prior study dated October 04, 2022 and September 05, 2021. FINDINGS: Breast Composition: The breasts are heterogeneously dense, which may obscure small masses. There are no dominant masses or suspicious calcifications. Stable bilateral secretory calcifications. No other significant abnormalities are identified. There has been no significant change since the prior study. BI/SCRN MAMM (CAD)W/TIM BILAT IMPRESSION: Stable bilateral screening mammogram. Yearly follow-up mammogram recommended. (A) ASSESSMENT CATEGORY: BIRADS Category 2: Benign. A letter regarding these results will be sent to the patient by the facility within 30 days. Approximately 10% of breast cancers are not detected by mammography. A normal mammogram should not delay biopsy of a clinically suspicious abnormality. [id number] Electronically Signed: Javon Bennett MD at 11:28 EDT ,
== END | disposition home or self-care (01) ==
LOC: OPBI 10:20
PROVIDERS: PCP Nurse Practitioner Family; Referring Provider Nurse Practitioner Family; Visit Provider Nurse Practitioner Family
DX: Z12.31 Encounter for screening mammogram for malignant neoplasm of breast (principal)
CPT/HCPCS: 77063; 77067

== ENCOUNTER → 2024-05-27 | Outpatient (CLI) | payer MEDICARE, SELFPAY ==
[2024-05-27 13:05] LABS: Absolute Lymphocyte Count 1.03 X10^3/uL (0.83-4.51); Absolute Neutrophil Count 3.7 X10^3/uL (2.0-7.7); Basophil# 0.02 X10^3/uL; Basophil% 0.4 % (0-1); Eosinophil# 0.21 X10^3/uL; Eosinophils% 3.8 % (0-5); Hemoglobin 12.2 g/dL (12.0-15.0); Lymphocyte # 1.03 X10^3/ul (0.83-4.51); Lymphocyte % 18.8 % (19-41); Mean Corp Hgb Conc 32.1 g/dL (32-36); Mean Corpuscular Volume 90.3 fL (81-99); Mean Platelet Vol. 10.7 fl (6.2-12.0); Monocyte# 0.46 X10^3/uL; Monocyte% 8.4 % (0-10); NRBC Flagged by Analyzer 0 % (0-5); Neutrophil # 3.74 X10^3/uL (2.7-7.7); Neutrophil % 68.2 % (47-70); Platelet Count 379 K/mm3 (150-450); RBC Distribution Width CV 13.1 % (11.6-14.6); RBC Distribution Width SD 43.2 fl (35.1-43.9); Red Blood Count 4.21 M/mm3 (4.2-5.4); White Blood Count 5.5 K/mm3 (4.4-11.0)
[2024-05-27 19:20] LABS: ALB/GLOB Ratio 1.4 RATIO (0.9-2.4); AST(SGOT) 19 U/L (<=31); Alanine Aminotransfer ALT/SGPT 7 U/L (<=34); Albumin, Serum 4.3 g/dL (3.4-4.8); Alkaline Phosphatase 76 U/L (35-104); Anion Gap 12 (5-15); BUN 7 mg/dL (4-19); BUN/Creat Ratio 9.6 RATIO (10-20); Calcium 9.8 mg/dL (7.6-11.0); Carbon Dioxide 23.1 mmol/L (22.0-29.0); Chloride 98 mmol/L (96-108); Creatinine, Serum 0.7 mg/dL (0.6-1.0); EST Glomerular Filtration Rate 87 (>60); Ferritin 156 ng/mL (22-378); Glucose 90 mg/dL (70-99); Iron 72 ug/dL (50-170); Potassium 4.5 mmol/L (3.3-5.1); Protein, Total 7.3 g/dL (5.9-8.4); Sodium Level 133 mmol/L (133-145); Total Bilirubin 0.39 mg/dL (0.00-1.30)
[2024-05-28 05:45] LABS: Vitamin B12 441 pg/mL (180-914); Vitamin D,25 Hydroxy 45.9 ng/mL (30-100)
== END | disposition home or self-care (01) ==
LOC: BFHLAB 09:31
PROVIDERS: PCP Nurse Practitioner Family; Visit Provider Nurse Practitioner Family
DX: R53.83 Other fatigue (principal); E55.9 Vitamin D deficiency, unspecified; E53.8 Deficiency of other specified B group vitamins; E61.1 Iron deficiency; I10 Essential (primary) hypertension; E03.9 Hypothyroidism, unspecified
CPT/HCPCS: 36415; 80053; 82306; 82607; 82728; 83540; 84439; 84443; 85025

== ENCOUNTER → 2024-09-17 | Outpatient (CLI) | payer MEDICARE, SELFPAY ==
[2024-09-17 18:36] LABS: Anion Gap 13 (5-15); BUN 8 mg/dL (4-19); Calcium,Total 9.2 mg/dL (7.6-11.0); Carbon Dioxide 22.3 mmol/L (21.0-32.0); Chloride 96 mmol/L (98-108); Creatinine, Serum 1.12 mg/dL (0.70-1.20); EST Glomerular Filtration Rate 52 (>60); Glucose 90 mg/dL (70-99); Magnesium 2.1 mg/dL (1.5-2.2); Potassium 3.6 mmol/L (3.3-5.1); Sodium Level 132 mmol/L (133-145); Troponin T High Sensitivity 15 ng/L (<=14)
--- OUTSIDE RECORDS SUMMARY | 2024-09-17 22:11 | XMS RPT_ITS | CCD ---
Author Organization [facility] Care Team Providers Care Angle Shear Operator Name Role Phone Dr. Fredis Vasquez Primary Care Provider Dr. Fredis Vasquez Referring Provider [phone] Rogerio REGULATORY LEAD, REGULATORY LEAD-C Geri Attending Provider Carlitos, Charity Primary Care Unavailable Carlitos, Charity Referring Unavailable Carlitos, Charity Attending Unavailable Carlitos, Charity Primary Care Unavailable Carlitos, Charity Referring Unavailable Carlitos, Charity Attending Unavailable Carlitos, Charity Attending Unavailable Carlitos, Charity Primary Care Unavailable Carlitos REGULATORY LEAD-C, Charity Primary Care Provider [phone] Carlitos REGULATORY LEAD-C, Charity Attending Provider Allergies Allergy Classification Reported Allergen(s) Allergy Type Date of Onset Reaction(s) Facility (6 sources) Aspirin Drug Allergy 2 headaches, nausea [facility] (7 sources) Sulfonamides (Antibiotic); Translations: [Sulfa (Sulfonamide Antibiotics)] Allergy to substance 2 hives [facility] (1 source) Aspirin Drug Allergy 2 [facility] Repository Medications Current Medications Medication Drug Class(es) Dates Sig (Normalized) Sig (Original) calcium carbonate 1500 mg / cholecalciferol 0.01 mg oral capsule (6 sources) Vitamin D Start: 11-14-2017 Calcium Carbonate-Vitamin D3 (Calcium 600 With Vitamin D3) 600 mg(1,500mg) -400 unit capsule Active NMA PO November 14, 2017 12:00am Start: 11-14-2017 Calcium Carbon ate-Vitamin D3 (Calcium 600 With Vitamin D3) 600 mg(1,500mg) -400 unit capsule Active CAP PO November 14, 2017 12:00am cholecalciferol 0.125 mg oral capsule (6 sources) Vitamin D Start: 11-14-2017 take 1 capsule by mouth every other day Cholecalciferol (Vitamin D3) 5,000 unit capsule Active 5000 U PO .every other day November 14, 2017 12:00am Cranberry (6 sources) Non-Standardized Food Allergenic Extract, Non-Standardized Plant Allergenic Extract Start: 11-14-2017 take 400 mg by mouth once Cranberry Active 400 MG PO ONCE November 14, 2017 2:15pm Start: 11-14-2017 take 1 capsule by mouth once C ranberry Fruit 400 mg capsule Active 400 mg PO ONCE November 14, 2017 12:00am Start: 11-14-2017 take 400 mg by mouth once Cran monreal Active 400 MG PO ONCE November 14, 2017 12:00am 24 hr darifenacin 15 mg extended release oral tablet (6 sources) Cholinergic Muscarinic Antagonist Start: 07-25-2021 take 1 tablet by mouth once daily Darifenacin 15 mg tablet extended release 24 hr Active 15 mg PO DAILY July 25, 2021 12:00am estradiol 0.01 mg vaginal insert (20 sources) Estrogen Start: 11-14-2017 End: 12-09-2022 Estradiol (Yuvafem) 10 mcg tablet Active 10 ug VAGINAL TWICE A WEEK December 09, 2022 11:41pm Start: 11-14-2017 End: 07-25-2021 Estradiol (Yuvafem) 10 mcg t ablet Discontinued 10 MCG VAGINAL TWICE A WEEK February 18, 2020 5:06pm July 21, 2020 1:12pm lutein 20 mg oral capsule (6 sources) Start: 11-14-2017 take 1 capsule by mouth once daily Lutein 20 mg capsule Active 20 mg PO daily November 14, 2017 12:00am mesalamine 800 mg delayed release oral tablet (6 sources) Aminosalicylate Start: 11-14-2017 Mesalamine (As acol Hd) 800 mg tablet,delayed release (DR/EC) Active 1600 mg PO THREE TIMES A DAY November 14, 2017 12:00am Multivitamin preparation (5 sources) Start: 11-14-2017 take 1 tablet by mouth once daily in the morning Multivitamin Active 1 TABLET PO EVERY MORNING November 14, 2017 2:14pm Start: 11-14-2017 take 1 tablet by mi once daily in the morning Multivitamin Active 1 TABLET PO EVERY MORNING November 14, 2017 12:00am Multivitamin tablet (1 source) Start: 11-14-2017 Multivitamin t ablet Active 1 {tbl} PO EVERY MORNING November 14, 2017 12:00am omeprazole 40 mg delayed release oral capsule (6 sources) Proton Pump Inhibitor Start: 11-14-2017 take 1 capsule by mouth once daily Omeprazole 40 mg capsule,delayed release(DR/EC) Active 40 mg PO daily November 14, 2017 12:00am Completed/Discontinued Medications Medication Drug Class(es) Dates Sig (Normalized) Sig (Original) fluticasone propionate 0.05 mg/actuat metered dose nasal spray (6 sources) Corticosteroid Start: 11-14-2017 End: 07-21-2020 Fluticasone Propionate 50 mcg/actuation spray,suspension Discontinued 2 NMA INTRANASAL daily November 14, 2017 12:00am July 21, 2020 1:03pm Start: 11-14-2017 End: 07-21-2020 Fluticasone Propionate Disco ntinued 2 SPRAY INTRANASAL daily November 14, 2017 12:00am July 21, 2020 1:03pm solifenacin succinate 5 mg oral tablet (6 sources) Cholinergic Muscarinic Antagonist Start: 11-14-2017 End: 07-25-2021 take 1 tablet by mouth once daily Solifenacin (Vesicare) 5 mg tablet Discontinued 5 mg PO daily November 14, 2017 12:00am July 25, 2021 1:04pm traZODone hydrochloride 50 mg oral tablet (6 sources) Serotonin Reuptake Inhibitor Start: 11-14-2017 End: 07-25-2021 take 1 tablet by mouth once daily as needed Trazodone 50 mg tablet Discontinued 50 mg PO daily as needed November 14, 2017 12:00am July 25, 2021 1:05pm Problems Active Problems Problem Classification Problem Date Documented Da te Episodic/Chronic Essential hypertension (1 source) Essential (primary) hypertension; Translations: [Essential (primary) hypertension] Onset: 09-21-2023 Chronic Malaise and fatigue (1 source) Other fatigue; Translations: [Other fatigue] Onset: 06-09-2024 Episodic Menopausal disorders (9 sources) Atrophic vaginitis; Translations: [Postmenopausal atrophic vaginitis] Chronic Nutritional deficiencies (6 sources) Vitamin D deficiency; Translations: [Vitamin D deficiency, unspecified] 11-14-2017 Chronic Regional enteritis and ulcerative colitis (6 sources) Ulcerative colitis; Translations: [Ulcerative colitis, unspecified, without complications] 11-14-2017 Chronic Residual codes; unclassified (6 sources) Insomnia; Translations: [Insomnia, unspecified] 11-14-2017 Episodic Past or Other Problems Problem Classification Problem Date Documented Da te Episodic/Chronic Other screening for suspected conditions (not mental disorders or infectious disease) (1 source) Encounter for screening mammogram for malignant neoplasm of breast; Translations: [Encounter for screening mammogram for malignant neoplasm of breast] Onset: 10-19-2023 Episodic Results Test Name Value Interpretation Reference Range Facility L503.0106on 2024 Cobalamin (Vitamin B12) [Mass/Vol] 441 pg/mL Normal 180-914 [facility] Comment on above: Performed By: #### L 503.0106, L100.0100, L506.1001, L500.4050 #### [facility] [address] [place], [address] L506.1001on 2024 Vitamin D 25-OH 45.9 ng/mL Normal 30-100 [facility] Comment on above: Result Comment: Nicolasa min D Status Deficiency: <20 ng/mL (50nmol/L) Insufficiency: 20-30 ng/mL (50-75 nmol/L) Sufficiency: 30-100 ng/mL (75-250 nmol/L) Toxicity: >100 ng/mL (>250 nmol/L) Performed By: #### L 503.0106, L100.0100, L506.1001, L500.4050 #### [facility] [address] [place], [address] Absolute neutrophil countOrd ered By: Charity Urbina on 05-27-2024 Neutrophils (Bld) [#/Vol] 3.7 10*3/uL 2.0-7.7 [facility] BUN/creatinine ratioOrdered By: Charity Urbina on 05-27-2024 Urea nitrogen/Creatinine [Mass ratio] 9.6 mg/mg Low 10-20 [facility] Basophil percentageOrdered B y: Charity Urbina on 05-27-2024 Basophils/100 WBC (Bld) 0.4 % 0-1 [facility] Bilirubin, totalOrdered By: Charity Urbina on 05-27-2024 Bilirubin [Mass/Vol] 0.39 mg/dL 0.00-1.30 [facility] CBC W/Diff, Automatedon 05-04 Absolute Lymph 1.03 X10 3/uL Normal 0.83-4.51 [facility] Comment on above: Performed By: #### L 503.0106, L100.0100, L506.1001, L500.4050 #### [facility] [address] [place], [address] Absolute Neut 3.7 X10 3/uL Normal 2.0-7.7 [facility] Comment on above: Performed By: #### L 503.0106, L100.0100, L506.1001, L500.4050 #### [facility] [address] [place], [address] Basophils/100 WBC (Bld) 0.4 % Normal 0-1 [facility] Comment on above: Performed By: #### L 503.0106, L100.0100, L506.1001, L500.4050 #### [facility] [address] [place], [address] Eosinophils/100 WBC (Bld) 3.8 % Normal 0-5 [facility] Comment on above: Performed By: #### L 503.0106, L100.0100, L506.1001, L500.4050 #### [facility] [address] [place], [address] Erythrocyte distribution width (RBC) [Ratio] 13.1 % Normal 11.6-14.6 [facility] Comment on above: Performed By: #### L 503.0106, L100.0100, L506.1001, L500.4050 #### [facility] [address] [place], [address] Hematocrit (Bld) [Volume fraction] 38.0 % Normal 37-47 [facility] Comment on above: Performed By: #### L 503.0106, L100.0100, L506.1001, L500.4050 #### [facility] [address] [place], [address] Hemoglobin (Bld) [Mass/Vol] 12.2 g/dL Normal 12.0-15.0 [facility] Comment on above: Performed By: #### L 503.0106, L100.0100, L506.1001, L500.4050 #### [facility] [address] [facility] [place], [address] IG% 0.400 Normal 0.0-0.9 [facility] Comment on above: Result Comment: IG% - Immature Granulocytes (promyelocytes, myelocytes and metamyelocytes) > 1% indicates that a LEFT SHIFT is Present. Performed By: #### L 503.0106, L100.0100, L506.1001, L500.4050 #### [facility] [address] [place], [address] Lymphocytes/100 WBC (Bld) 18.8 % Low 19-41 [facility] Comment on above: Performed By: #### L 503.0106, L100.0100, L506.1001, L500.4050 #### [facility] [address] [place], [address] MCH (RBC) [Entitic mass] 29.0 pg Normal 27.0-32.0 [facility] Comment on above: Performed By: #### L 503.0106, L100.0100, L506.1001, L500.4050 #### [facility] [address] [place], [address] MCHC (RBC) [Mass/Vol] 32.1 g/dL Normal 32-36 [facility] Comment on above: Performed By: #### L 503.0106, L100.0100, L506.1001, L500.4050 #### [facility] [address] [place], [address] MCV (RBC) [Entitic vol] 90.3 fL Normal 81-99 [facility] Comment on above: Performed By: #### L 503.0106, L100.0100, L506.1001, L500.4050 #### [facility] [address] [place], [address] Monocytes/100 WBC (Bld) 8.4 % Normal 0-10 [facility] Comment on above: Performed By: #### L 503.0106, L100.0100, L506.1001, L500.4050 #### [facility] [address] [place], [address] Neutrophils/100 WBC (Bld) 68.2 % Normal 47-70 [facility] Comment on above: Performed By: #### L 503.0106, L100.0100, L506.1001, L500.4050 #### [facility] [address] [place], [address] Nucleated RBC (Bld) [#/Vol] 0 10*3/uL Normal 0-5 [facility] Comment on above: Performed By: #### L 503.0106, L100.0100, L506.1001, L500.4050 #### [facility] [address] [place], [address] Platelet mean volume (Bld) [Entitic vol] 10.7 fL Normal 6.2-12.0 [facility] Comment on above: Performed By: #### L 503.0106, L100.0100, L506.1001, L500.4050 #### [facility] [address] [place], [address] Platelets (Bld) [#/Vol] 379 10*3/uL Normal 150-450 [facility] Comment on above: Performed By: #### L 503.0106, L100.0100, L506.1001, L500.4050 #### [facility] [address] [place], [address] RBC (Bld) [#/Vol] 4.21 10*6/uL Normal 4.2-5.4 [facility] Comment on above: Performed By: #### L 503.0106, L100.0100, L506.1001, L500.4050 #### [facility] [address] [place], [address] RDW SD 43.2 fl Normal 35.1-43.9 [facility] Comment on above: Performed By: #### L 503.0106, L100.0100, L506.1001, L500.4050 #### [facility] [address] [place], [address] WBC (Bld) [#/Vol] 5.5 10*3/uL Normal 4.4-11.0 [facility] Comment on above: Performed By: #### L 503.0106, L100.0100, L506.1001, L500.4050 #### [facility] [address] [place], [address] Comprehensive Metabolic Prof [facility] 05-27-2024 Albumin [Mass/Vol] 4.3 g/dL Normal 3.4-4.8 [facility] Comment on above: Performed By: #### L 501.9520, L503.6150, L503.6550, L506.0400, L500.4050 #### [facility] [address] [place], [address] Albumin/Globulin [Mass ratio] 1.4 {ratio} Normal 0.9-2.4 [facility] Comment on above: Performed By: #### L 501.9520, L503.6150, L503.6550, L506.0400, L500.4050 #### [facility] [address] [place], [address] ALK PHOS 76 U/L Normal 35-104 [facility] Comment on above: Performed By: #### L 501.9520, L503.6150, L503.6550, L506.0400, L500.4050 #### [facility] [address] [place], [address] ALT [Catalytic activity/Vol] 7 U/L Normal <=34 [facility] Comment on above: Performed By: #### L 501.9520, L503.6150, L503.6550, L506.0400, L500.4050 #### [facility] [address] [place], [address] Anion gap [Moles/Vol] 12 mmol/L Normal 5-15 [facility] Comment on above: Performed By: #### L 501.9520, L503.6150, L503.6550, L506.0400, L500.4050 #### [facility] [address] [place], [address] AST [Catalytic activity/Vol] 19 U/L Normal <=31 [facility] Comment on above: Performed By: #### L 501.9520, L503.6150, L503.6550, L506.0400, L500.4050 #### [facility] [address] [place], [address] Bilirubin [Mass/Vol] 0.39 mg/dL Normal 0.00-1.30 [facility] Comment on above: Performed By: #### L 501.9520, L503.6150, L503.6550, L506.0400, L500.4050 #### [facility] [address] [place], [address] BUN/CRE 9.6 RATIO Low 10-20 [facility] Comment on above: Performed By: #### L 501.9520, L503.6150, L503.6550, L506.0400, L500.4050 #### [facility] [address] [place], [address] Calcium [Mass/Vol] 9.8 mg/dL Normal 7.6-11.0 [facility] Comment on above: Performed By: #### L 501.9520, L503.6150, L503.6550, L506.0400, L500.4050 #### [facility] [address] [place], [address] Chloride [Moles/Vol] 98 mmol/L Normal 96-108 [facility] Comment on above: Performed By: #### L 501.9520, L503.6150, L503.6550, L506.0400, L500.4050 #### [facility] [address] [place], [address] CO2 [Moles/Vol] 23.1 mmol/L Normal 22.0-29.0 [facility] Comment on above: Performed By: #### L 501.9520, L503.6150, L503.6550, L506.0400, L500.4050 #### [facility] [address] [place], [address] Creatinine [Mass/Vol] 0.7 mg/dL Normal 0.6-1.0 [facility] Comment on above: Performed By: #### L 501.9520, L503.6150, L503.6550, L506.0400, L500.4050 #### [facility] [address] [place], [address] GFR/1.73 sq M.predicted among non-blacks MDRD (S/P/Bld) [Vol rate/Area] 87 mL/min/{1.73_m2} Normal >60 [facility] Comment on above: Result Comment: mL/m in/1.73m2 CKD-EPI Creatinine Equation (2020) Performed By: #### L 501.9520, L503.6150, L503.6550, L506.0400, L500.4050 #### [facility] [address] [place], [address] Globulin (S) [Mass/Vol] 3.0 g/dL Normal 2.2-4.2 [facility] Comment on above: Performed By: #### L 501.9520, L503.6150, L503.6550, L506.0400, L500.4050 #### [facility] [address] [place], [address] Glucose [Mass/Vol] 90 mg/dL Normal 70-99 [facility] Comment on above: Performed By: #### L 501.9520, L503.6150, L503.6550, L506.0400, L500.4050 #### [facility] [address] [place], [address] Potassium [Moles/Vol] 4.5 mmol/L Normal 3.3-5.1 [facility] Comment on above: Performed By: #### L 501.9520, L503.6150, L503.6550, L506.0400, L500.4050 #### [facility] [address] [place], [address] Sodium [Moles/Vol] 133 mmol/L Normal 133-145 [facility] Comment on above: Performed By: #### L 501.9520, L503.6150, L503.6550, L506.0400, L500.4050 #### [facility] [address] [place], [address] T PROT 7.3 g/dL Normal 5.9-8.4 [facility] Comment on above: Performed By: #### L 501.9520, L503.6150, L503.6550, L506.0400, L500.4050 #### [facility] [address] [place], [address] Urea nitrogen [Mass/Vol] 7 mg/dL Normal 4-19 [facility] Comment on above: Performed By: #### L 501.9520, L503.6150, L503.6550, L506.0400, L500.4050 #### [facility] [address] [place], [address] ALB Normal 3.4-4.8 [facility] Comment on above: Result Comment: PUTT ING UNDER DIFFERENT REQ Performed By: #### L 503.0106, L100.0100, L506.1001, L500.4050 #### [facility] [address] [place], [address] ALK PHOS Normal 45-117 [facility] Comment on above: Result Comment: PUTT ING UNDER DIFFERENT REQ Performed By: #### L 503.0106, L100.0100, L506.1001, L500.4050 #### [facility] [address] [place], [address] ALT Normal 13-56 [facility] Comment on above: Result Comment: PUTT ING UNDER DIFFERENT REQ Performed By: #### L 503.0106, L100.0100, L506.1001, L500.4050 #### [facility] [address] [place], [address] AST Normal 15-37 [facility] Comment on above: Result Comment: PUTT ING UNDER DIFFERENT REQ Performed By: #### L 503.0106, L100.0100, L506.1001, L500.4050 #### [facility] [address] [place], [address] BUN Normal 4-19 [facility] Comment on above: Result Comment: PUTT ING UNDER DIFFERENT REQ Performed By: #### L 503.0106, L100.0100, L506.1001, L500.4050 #### [facility] [address] [place], [address] BUN/CRE Normal 10-20 [facility] Comment on above: Result Comment: PUTT ING UNDER DIFFERENT REQ Performed By: #### L 503.0106, L100.0100, L506.1001, L500.4050 #### [facility] [address] [place], [address] Calcium Normal 8.5-10.1 [facility] Comment on above: Result Comment: PUTT ING UNDER DIFFERENT REQ Performed By: #### L 503.0106, L100.0100, L506.1001, L500.4050 #### [facility] [address] [place], [address] CL Normal 98-107 [facility] Comment on above: Result Comment: PUTT ING UNDER DIFFERENT REQ Performed By: #### L 503.0106, L100.0100, L506.1001, L500.4050 #### [facility] [address] [place], [address] CO2 Normal 21.0-32.0 [facility] Comment on above: Result Comment: PUTT ING UNDER DIFFERENT REQ Performed By: #### L 503.0106, L100.0100, L506.1001, L500.4050 #### [facility] [address] [place], [address] CREAT,SERUM Normal 0.6-1.0 [facility] Comment on above: Result Comment: PUTT ING UNDER DIFFERENT REQ Performed By: #### L 503.0106, L100.0100, L506.1001, L500.4050 #### [facility] [address] [place], [address] eGFR Normal >60 [facility] Comment on above: Result Comment: PUTT ING UNDER DIFFERENT REQ Performed By: #### L 503.0106, L100.0100, L506.1001, L500.4050 #### [facility] [address] [place], [address] GAP Normal 5-15 [facility] Comment on above: Result Comment: PUTT ING UNDER DIFFERENT REQ Performed By: #### L 503.0106, L100.0100, L506.1001, L500.4050 #### [facility] [address] [place], [address] GLU Normal 70-99 [facility] Comment on above: Result Comment: PUTT ING UNDER DIFFERENT REQ Performed By: #### L 503.0106, L100.0100, L506.1001, L500.4050 #### [facility] [address] [place], [address] Potassium Normal 3.5-5.1 [facility] Comment on above: Result Comment: PUTT ING UNDER DIFFERENT REQ Performed By: #### L 503.0106, L100.0100, L506.1001, L500.4050 #### [facility] [address] [place], [address] T BILI Normal 0.20-1.00 [facility] Comment on above: Result Comment: PUTT ING UNDER DIFFERENT REQ Performed By: #### L 503.0106, L100.0100, L506.1001, L500.4050 #### [facility] [address] [place], [address] T PROT Normal 5.9-8.4 [facility] Comment on above: Result Comment: PUTT ING UNDER DIFFERENT REQ Performed By: #### L 503.0106, L100.0100, L506.1001, L500.4050 #### [facility] [address] [place], [address] Comprehensive Metabolic Profil Normal 136-145 [facility] Comment on above: Result Comment: PUTT ING UNDER DIFFERENT REQ Performed By: #### L 503.0106, L100.0100, L506.1001, L500.4050 #### [facility] [address] [place], [address] Creatinine [Moles/Vol]Ordere d By: Charity Urbina on 05-27-2024 Creatinine [Mass/Vol] 0.7 mg/dL 0.6-1.0 [facility] Eosinophil percentageOrdered By: Charity Urbina on 05-27-2024 Eosinophils/100 WBC (Bld) 3.8 % 0-5 [facility] Erythrocyte distribution wid th ratioOrdered By: Bighorn Carlitos on 05-27-2024 Erythrocyte distribution width (RBC) [Ratio] 13.1 % 11.6-14.6 [facility] Erythrocyte distribution wid th standard deviationOrdered By: Bighorn Carlitos on 05-27-2024 Erythrocyte distribution width (RBC) [Entitic vol] 43.2 fL 35.1-43.9 [facility] Ferritinon 05-27-2024 Ferritin [Mass/Vol] 156 ng/mL Normal 22-378 [facility] Comment on above: Performed By: #### L 501.9520, L503.6150, L503.6550, L506.0400, L500.4050 #### [facility] [address] [place], [place], [id number] GFR/1.73 sq M.predicted misti g non-blacks MDRD (S/P/Bld) [Vol rate/Area]Ordered By: Charity Urbina on 05-27-2024 Estimated GFR (MDRD) Non-Af Amer 87 >60 [facility] Comment on above: mL/min/1.73m2 CKD-EP I Creatinine Equation (2020) Hematocrit Auto (Bld) [Volum e fraction]Ordered By: Charity Urbina on 05-27-2024 Hematocrit (Bld) [Volume fraction] 38.0 % 37-47 [facility] Hemoglobin measurementOrdere d By: Charity Urbina on 05-27-2024 Hemoglobin (Bld) [Mass/Vol] 12.2 g/dL 12.0-15.0 [facility] Immature granulocytes/100 WB C Auto (Bld)Ordered By: Charity Urbina on 05-27-2024 Immature granulocytes/100 WBC (Bld) 0.400 % 0.0-0.9 [facility] Comment on above: IG% - Immature Granu locytes (promyelocytes, myelocytes and metamyelocytes) > 1% indicates that a LEFT SHIFT is Present. Ironon 05-27-2024 Iron [Mass/Vol] 72 ug/dL Normal 50-170 [facility] Comment on above: Performed By: #### L 501.9520, L503.6150, L503.6550, L506.0400, L500.4050 #### [facility] [address] [facility] [place], [address] Iron (Unsp spec) [Mass/Mass] Ordered By: Charity Urbina on 05-27-2024 Iron [Mass/Vol] 72 ug/dL 50-170 [facility] - Chemistry and C hemistry - challengeOrdered By: Charity Urbina on 05-27-2024 AST [Catalytic activity/Vol] 19 U/L <32 [facility] Cobalamin (Vitamin B12) [Mass/Vol] 441 pg/mL 180-914 [facility] Lymphocytes Auto (Unsp spec) [#/Vol]Ordered By: Charity Urbina on 05-27-2024 Lymphocytes (Bld) [#/Vol] 1.03 10*3/uL 0.83-4.51 [facility] Lymphocytes/100 WBC Auto (Un sp spec)Ordered By: Charity Urbina on 05-27-2024 Lymphocytes/100 WBC (Bld) 18.8 % Low 19-41 [facility] MCV (mean corpuscular volume ) determinationOrdered By: Charity Urbina on 05-27-2024 MCV (RBC) [Entitic vol] 90.3 fL 81-99 [facility] Mean corpuscular hemoglobin (MCH) determinationOrdered By: Charity Urbina on 05-27-2024 MCH (RBC) [Entitic mass] 29.0 pg 27.0-32.0 [facility] Mean corpuscular hemoglobin concentration (MCHC) determinationOrdered By: Charity Urbina on 05-27-2024 MCHC (RBC) [Mass/Vol] 32.1 g/dL 32-36 [facility] Mean platelet volume determi nationOrdered By: Charity Urbina on 05-27-2024 Platelet mean volume (Bld) [Entitic vol] 10.7 fL 6.2-12.0 [facility] Monocyte percentageOrdered B y: Charity Urbina on 05-27-2024 Monocytes/100 WBC (Bld) 8.4 % 0-10 [facility] Neutrophil percentageOrdered By: Charity Urbina on 05-27-2024 Neutrophils/100 WBC (Bld) 68.2 % 47-70 [facility] No Panel InformationOrdered By: Charity Urbina on 05-27-2024 Vitamin D 25-Hydroxy 45.9 ng/mL 30-100 [facility] Comment on above: Vitamin D StatusDefi ciency: <20 ng/mL (50nmol/L)Insufficiency: 20-30 ng/mL (50-75 nmol/L)Sufficiency: 30-100 ng/mL (75-250 nmol/L)Toxicity: >100 ng/mL (>250 nmol/L) Nucleated red blood cell per centageOrdered By: Charity Urbina on 05-27-2024 Nucleated RBC/100 WBC (Bld) [Ratio] 0 % 0-5 [facility] Platelet countOrdered By: Ra malinda Urbina on 05-27-2024 Platelets (Bld) [#/Vol] 379 10*3/uL 150-450 [facility] RBC Auto (Bld) [#/Vol]Ordere d By: Charity Urbina on 05-27-2024 RBC (Bld) [#/Vol] 4.21 10*6/uL 4.2-5.4 [facility] Serum globulin measurementOr dered By: Charity Urbina on 05-27-2024 Globulin (S) [Mass/Vol] 3.0 g/dL 2.2-4.2 [facility] Serum glucose measurement (m ass/volume)Ordered By: Charity Urbina on 05-27-2024 Glucose [Mass/Vol] 90 mg/dL 70-99 [facility] Serum or plasma alanine david otransferase (ALT) measurementOrdered By: Charity Urbina on 05-27-2024 ALT [Catalytic activity/Vol] 7 U/L <35 [facility] Serum or plasma albumin new urement (mass/volume)Ordered By: Charity Urbina on 05-27-2024 Albumin [Mass/Vol] 4.3 g/dL 3.4-4.8 [facility] Serum or plasma albumin/glob ulin mass ratioOrdered By: Charity Urbina on 05-27-2024 Albumin/Globulin [Mass ratio] 1.4 {ratio} 0.9-2.4 [facility] Serum or plasma alkaline marissa sphatase measurementOrdered By: Charity Urbina on 05-27-2024 ALP [Catalytic activity/Vol] 76 U/L 35-104 [facility] Serum or plasma anion gap de termination (moles/volume)Ordered By: Charity Urbina on 05-27-2024 Anion gap [Moles/Vol] 12 mmol/L 5-15 [facility] Serum or plasma calcium new urement (mass/volume)Ordered By: Charity Urbina on 05-27-2024 Calcium [Mass/Vol] 9.8 mg/dL 7.6-11.0 [facility] Serum or plasma ferritin lexi surement (mass/volume)Ordered By: Charity Urbina on 05-27-2024 Ferritin [Mass/Vol] 156 ng/mL 22-378 [facility] Serum or plasma potassium me asurementOrdered By: Charity Urbina on 05-27-2024 Potassium [Moles/Vol] 4.5 mmol/L 3.3-5.1 [facility] Serum or plasma sodium measu rement (moles/volume)Ordered By: Charity Urbina on 05-27-2024 Sodium [Moles/Vol] 133 mmol/L 133-145 [facility] Serum or plasma urea nitroge n measurement (mass/volume)Ordered By: Charity Urbina on 05-27-2024 Urea nitrogen [Mass/Vol] 7 mg/dL 4-19 [facility] T4 Free Directon 05-27-2024 T4 FREE DIRECT 1.30 ng/dL Normal 0.76-1.46 [facility] Comment on above: Performed By: #### L 501.9520, L503.6150, L503.6550, L506.0400, L500.4050 #### [facility] [address] [place], [place], [id number] T4 freeOrdered By: Charity meng on 05-27-2024 Free T4 [Mass/Vol] 1.30 ng/dL 0.76-1.46 [facility] TSH DL <= 0.005 mIU/L QnOrde red By: Charity Urbina on 05-27-2024 Thyroid Stimulating Hormone (TSH) 1.530 uIU/mL 0.300-4.200 [facility] Thyroid Stim Hormone (TSH)on 05-27-2024 TSH 1.530 uIU/mL Normal 0.300-4.200 [facility] Comment on above: Performed By: #### L 501.9520, L503.6150, L503.6550, L506.0400, L500.4050 #### [facility] [address] [place], [place], [id number] Total proteinOrdered By: Rosales Urbina on 05-27-2024 Protein [Mass/Vol] 7.3 g/dL 5.9-8.4 [facility] White blood cell (WBC) count Ordered By: Charity Urbina on 05-27-2024 WBC (Bld) [#/Vol] 5.5 10*3/uL 4.4-11.0 [facility] SCRN MAMM (CAD)W/TIM BILATo n 10-10-2023 SCRN MAMM (CAD)W/TIM BILAT [facility] [address] [place] [address] SCRN MAMM (CAD)W/TIM BILAT MR#: [id number] Acct: [id number] Name: ALBA TORIBIO Rep #: [id number] : 1950 F 73 From: Javon mcdonough MD PCP: COSME Woodward Status: [facility] Study: SCRN MAMM (CAD)W/TIM BILAT Date of Exam: 09/30 Exam# [id number] Ordering Dr: Charity Urbina [id number] MAMMOGRAPHY - BILATERAL SCREENING REASON FOR EXAM: Female, 73 years old. Routine annual screening examination. PERTINENT HISTORY: Non-contributory. TECHNIQUE: Digital bilateral breast tim (3D mammographic acquisition) in the CC and MLO projections. 2-D mediolateral oblique (MLO) and craniocaudad (CC) views of both breasts were obtained. CAD: Full Field Digital Mammography with Computer Added Detection was performed. COMPARISON: Comparison is made with prior study dated October 04, 2022 and September 05, 2021. FINDINGS: Breast Composition: The breasts are heterogeneously dense, which may obscure small masses. There are no dominant masses or suspicious calcifications. Stable bilateral secretory calcifications. No other significant abnormalities are identified. There has been no significant change since the prior study. BI/SCRN MAMM (CAD)W/TIM BILAT IMPRESSION: Stable bilateral screening mammogram. Yearly follow-up mammogram recommended. (A) ASSESSMENT CATEGORY: BIRADS Category 2: Benign. A letter regarding these results will be sent to the patient by the facility within 30 days. Approximately 10% of breast cancers are not detected by mammography. A normal mammogram should not delay biopsy of a clinically suspicious abnormality. [id number] Electronically Signed: Javon Bennett MD at 11:28 EDT , CC: COSME Urbina Deputy Chief Counsel: Signed Normal [facility] Comprehensive Metabolic Prof dick 09-15-2023 Albumin [Mass/Vol] 3.6 g/dL Normal 3.2-5.0 [facility] Comment on above: Performed By: #### L 503.0106, L100.0100, L506.1001, L500.4050 #### [facility] [address] [place], [address] Albumin/Globulin [Mass ratio] 1.1 {ratio} Normal 0.9-2.4 [facility] Comment on above: Performed By: #### L 503.0106, L100.0100, L506.1001, L500.4050 #### [facility] [address] [place], [address] ALK P 60 U/L Normal 45-117 [facility] Comment on above: Performed By: #### L 503.0106, L100.0100, L506.1001, L500.4050 #### [facility] [address] [place], [address] ALT [Catalytic activity/Vol] 16 U/L Normal 13-56 [facility] Comment on above: Performed By: #### L 503.0106, L100.0100, L506.1001, L500.4050 #### [facility] [address] [place], [address] AST [Catalytic activity/Vol] 18 U/L Normal 15-37 [facility] Comment on above: Performed By: #### L 503.0106, L100.0100, L506.1001, L500.4050 #### [facility] [address] [place], [address] Bilirubin [Mass/Vol] 0.50 mg/dL Normal 0.20-1.00 [facility] Comment on above: Result Comment: For patients on eltrombopag therapy, use of Dimension [place] TBIL is not recommended. Performed By: #### L 503.0106, L100.0100, L506.1001, L500.4050 #### [facility] [address] [place], [address] BUN/CRE 9.4 RATIO Low 10-20 [facility] Comment on above: Performed By: #### L 503.0106, L100.0100, L506.1001, L500.4050 #### [facility] [address] [place], [address] CA,Total 9.2 mg/dL Normal 8.5-10.1 [facility] Comment on above: Performed By: #### L 503.0106, L100.0100, L506.1001, L500.4050 #### [facility] [address] [place], [address] Chloride [Moles/Vol] 103 mmol/L Normal 98-107 [facility] Comment on above: Performed By: #### L 503.0106, L100.0100, L506.1001, L500.4050 #### [facility] [address] [place], [address] CO2 [Moles/Vol] 29.0 mmol/L Normal 21.0-32.0 [facility] Comment on above: Performed By: #### L 503.0106, L100.0100, L506.1001, L500.4050 #### [facility] [address] [place], [address] Creatinine [Mass/Vol] 0.85 mg/dL Normal 0.55-1.02 [facility] Comment on above: Result Comment: The validity of the calculated GFR GFRAA in patients over 70 years has not been determined. Clinical correlation is essential. Performed By: #### L 503.0106, L100.0100, L506.1001, L500.4050 #### [facility] [address] [place], [address] EST GFR - AA 85 mL/min Normal >60 [facility] Comment on above: Result Comment: Afri can Maltese GFR Calc Performed By: #### L 503.0106, L100.0100, L506.1001, L500.4050 #### [facility] [address] [place], [address] GAP 6 Normal 5-15 [facility] Comment on above: Performed By: #### L 503.0106, L100.0100, L506.1001, L500.4050 #### [facility] [address] [place], [address] GFR/1.73 sq M.predicted among non-blacks MDRD (S/P/Bld) [Vol rate/Area] 70 mL/min/{1.73_m2} Normal >60 [facility] Comment on above: Result Comment: Non- GFR Calc Performed By: #### L 503.0106, L100.0100, L506.1001, L500.4050 #### [facility] [address] [place], [address] Globulin (S) [Mass/Vol] 3.4 g/dL Normal 2.2-4.2 [facility] Comment on above: Performed By: #### L 503.0106, L100.0100, L506.1001, L500.4050 #### [facility] [address] [place], [address] Glucose [Mass/Vol] 96 mg/dL Normal 74-106 [facility] Comment on above: Performed By: #### L 503.0106, L100.0100, L506.1001, L500.4050 #### [facility] [address] [place], [address] Potassium [Moles/Vol] 3.8 mmol/L Normal 3.5-5.1 [facility] Comment on above: Performed By: #### L 503.0106, L100.0100, L506.1001, L500.4050 #### [facility] [address] [place], [address] Sodium [Moles/Vol] 138 mmol/L Normal 136-145 [facility] Comment on above: Performed By: #### L 503.0106, L100.0100, L506.1001, L500.4050 #### [facility] [address] [place], [address] T PROT 7.0 g/dL Normal 6.4-8.2 [facility] Comment on above: Performed By: #### L 503.0106, L100.0100, L506.1001, L500.4050 #### [facility] [address] [place], [address] Urea nitrogen [Mass/Vol] 8 mg/dL Normal 7-18 [facility] Comment on above: Performed By: #### L 503.0106, L100.0100, L506.1001, L500.4050 #### [facility] [address] [place], [address] Lipid Profileon 09-15-2023 Cholesterol [Mass/Vol] 221 mg/dL High 200 [facility] Comment on above: Result Comment: <200 mg/dL Desirable 200-240 mg/dL Borderline >240 mg/dL High Risk Performed By: #### L 503.0106, L100.0100, L506.1001, L500.4050 #### [facility] [address] [place], [address] Cholesterol in HDL [Mass/Vol] 76 mg/dL Normal [facility] Comment on above: Result Comment: The drugs N-Acetylcysteine and Metamizole may falsely depress this assay. Reference Range HDL <40 mg/dL Low HDL Cholesterol HDL >or= 60 mg/dL High HDL Cholesterol Performed By: #### L 503.0106, L100.0100, L506.1001, L500.4050 #### [facility] [address] [place], [address] Cholesterol in LDL [Mass/Vol] 128 mg/dL Normal 0-130 [facility] Comment on above: Performed By: #### L 503.0106, L100.0100, L506.1001, L500.4050 #### [facility] [address] [place], [address] Cholesterol in VLDL [Mass/Vol] 17 mg/dL Normal 5-40 [facility] Comment on above: Performed By: #### L 503.0106, L100.0100, L506.1001, L500.4050 #### [facility] [address] [place], [address] Triglyceride [Mass/Vol] 85 mg/dL Normal [facility] Comment on above: Result Comment: The drugs N-Acetylcysteine and Metamizole may falsely depress this assay. Serum Triglycerides Reference Interval Normal <150 mg/dL Borderline high 150 - 199 mg/dL High 200 - 499 mg/dL Very High > or = 500 mg/dL Performed By: #### L 503.0106, L100.0100, L506.1001, L500.4050 #### [facility] [address] [place], [address] CBC W/Diff, Automatedon - Absolute Lymph 1.73 X10 3/uL Normal 0.83-4.51 [facility] Comment on above: Performed By: #### L 100.0100, L500.4050, L500.4100, L506.1000 #### [facility] [address] [place], [address] Absolute Neut 2.4 X10 3/uL Normal 2.0-7.7 [facility] Comment on above: Performed By: #### L 100.0100, L500.4050, L500.4100, L506.1000 #### [facility] [address] [place], [address] Basophils/100 WBC (Bld) 0.6 % Normal 0-1 [facility] Comment on above: Performed By: #### L 100.0100, L500.4050, L500.4100, L506.1000 #### [facility] [address] [place], [address] Eosinophils/100 WBC (Bld) 6.5 % High 0-5 [facility] Comment on above: Performed By: #### L 100.0100, L500.4050, L500.4100, L506.1000 #### [facility] [address] [place], [address] Erythrocyte distribution width (RBC) [Ratio] 13.0 % Normal 11.6-14.6 [facility] Comment on above: Performed By: #### L 100.0100, L500.4050, L500.4100, L506.1000 #### [facility] [address] [place], [address] Hematocrit (Bld) [Volume fraction] 38.1 % Normal 37-47 [facility] Comment on above: Performed By: #### L 100.0100, L500.4050, L500.4100, L506.1000 #### [facility] [address] [place], [address] Hemoglobin (Bld) [Mass/Vol] 12.1 g/dL Normal 12.0-15.0 [facility] Comment on above: Performed By: #### L 100.0100, L500.4050, L500.4100, L506.1000 #### [facility] [address] [place], [address] IG% 0.200 Normal 0.0-0.9 [facility] Comment on above: Result Comment: IG% - Immature Granulocytes (promyelocytes, myelocytes and metamyelocytes) > 1% indicates that a LEFT SHIFT is Present. Performed By: #### L 100.0100, L500.4050, L500.4100, L506.1000 #### [facility] [address] [place], [address] Lymphocytes/100 WBC (Bld) 35.3 % Normal 19-41 [facility] Comment on above: Performed By: #### L 100.0100, L500.4050, L500.4100, L506.1000 #### [facility] [address] [place], [address] MCH (RBC) [Entitic mass] 29.0 pg Normal 27.0-32.0 [facility] Comment on above: Performed By: #### L 100.0100, L500.4050, L500.4100, L506.1000 #### [facility] [address] [place], [address] MCHC (RBC) [Mass/Vol] 31.8 g/dL Low 32-36 [facility] Comment on above: Performed By: #### L 100.0100, L500.4050, L500.4100, L506.1000 #### [facility] [address] [place], [address] MCV (RBC) [Entitic vol] 91.4 fL Normal 81-99 [facility] Comment on above: Performed By: #### L 100.0100, L500.4050, L500.4100, L506.1000 #### [facility] [address] [place], [address] Monocytes/100 WBC (Bld) 8.2 % Normal 0-10 [facility] Comment on above: Performed By: #### L 100.0100, L500.4050, L500.4100, L506.1000 #### [facility] [address] [place], [address] Neutrophils/100 WBC (Bld) 49.2 % Normal 47-70 [facility] Comment on above: Performed By: #### L 100.0100, L500.4050, L500.4100, L506.1000 #### [facility] [address] [place], [address] Nucleated RBC (Bld) [#/Vol] 0 10*3/uL Normal 0-5 [facility] Comment on above: Performed By: #### L 100.0100, L500.4050, L500.4100, L506.1000 #### [facility] [address] [place], [address] Platelet mean volume (Bld) [Entitic vol] 10.1 fL Normal 6.2-12.0 [facility] Comment on above: Performed By: #### L 100.0100, L500.4050, L500.4100, L506.1000 #### [facility] [address] [place], [address] Platelets (Bld) [#/Vol] 336 10*3/uL Normal 150-450 [facility] Comment on above: Performed By: #### L 100.0100, L500.4050, L500.4100, L506.1000 #### [facility] [address] [place], [address] RBC (Bld) [#/Vol] 4.17 10*6/uL Low 4.2-5.4 [facility] Comment on above: Performed By: #### L 100.0100, L500.4050, L500.4100, L506.1000 #### [facility] [address] [place], [address] RDW SD 43.4 fl Normal 35.1-43.9 [facility] Comment on above: Performed By: #### L 100.0100, L500.4050, L500.4100, L506.1000 #### [facility] [address] [place], [address] WBC (Bld) [#/Vol] 4.9 10*3/uL Normal 4.4-11.0 [facility] Comment on above: Performed By: #### L 100.0100, L500.4050, L500.4100, L506.1000 #### [facility] [address] [place], [address] Vitamin D,25 Hydroxyon 09-13 Vitamin D 25-OH 45.5 ng/mL Normal [facility] Comment on above: Result Comment: Nicolasa min D 25(OH) Status Range Deficiency <20 ng/mL (50nmol/L) Insufficiency 20 - 30 ng/mL (50 - 75 nmol/L) Sufficiency 30 - 100 ng/mL (75 - 250 nmol/L) Toxicity >100 ng/mL (>250 nmol/L) Performed By: #### L 503.0106, L100.0100, L506.1001, L500.4050 #### [facility] [address] [place], [address] Absolute lymphocyte countOrd ered By: Charity Urbina on 09-05-2022 Lymphocytes Auto (Unsp spec) [#/Vol] 1.48 10*3/uL 0.83-4.51 [facility] Basophil percentageOrdered B y: Charity Urbina on 09-05-2022 Basophils/100 WBC (Bld) 0.5 % 0-1 [facility] Bilirubin [Mass/Vol] 0.50 mg/dL 0.20-1.00 [facility] Comment on above: For patients on eltr ombopag therapy, use of Dimension [place] TBIL is not recommended. Chloride [Moles/Vol] 105 mmol/L 98-107 [facility] Cholesterol [Mass/Vol] 214 mg/dL <200 [facility] Comment on above: <200 mg/dL Desirable 200-240 mg/dL Borderline >240 mg/dL High Risk Eosinophils/100 WBC (Bld) 4.5 % 0-5 [facility] Glucose [Mass/Vol] 98 mg/dL 74-106 [facility] Neutrophils (Bld) [#/Vol] 4.2 10*3/uL 2.0-7.7 [facility] Neutrophils/100 WBC (Bld) 64.5 % 47-70 [facility] Potassium [Moles/Vol] 4.1 mmol/L 3.5-5.1 [facility] Protein [Mass/Vol] 7.7 g/dL 6.4-8.2 [facility] Sodium [Moles/Vol] 136 mmol/L 136-145 [facility] Triglyceride [Mass/Vol] 73 mg/dL <199 [facility] Comment on above: The drugs N-Acetylcy steine and Metamizole may falsely depress this assay.Serum Triglycerides Reference Interval Normal <150 mg/dL Borderline high 150 - 199 mg/dL High 200 - 499 mg/dL Very High > or = 500 mg/dL WBC (Bld) [#/Vol] 6.5 10*3/uL 4.4-11.0 [facility] Blood erythrocytes count (nu mber/volume)Ordered By: Charity Urbina on 09-05-2022 RBC (Bld) [#/Vol] 4.44 10*6/uL 4.2-5.4 [facility] Blood hemoglobin measurement (mass/volume)Ordered By: Charity Urbina on 09-05-2022 Hemoglobin (Bld) [Mass/Vol] 12.9 g/dL 12.0-15.0 [facility] Blood lymphocytes/100 leukoc ytesOrdered By: Charity Urbina on 09-05-2022 Lymphocytes/100 WBC (Bld) 22.7 % 19-41 [facility] Blood monocytes/100 leukocyt esOrdered By: Charitymihir Urbina on 09-05-2022 Monocytes/100 WBC (Bld) 7.5 % 0-10 [facility] Blood platelet mean volumeOr dered By: Bighorn Carlitos on 09-05-2022 Platelet mean volume (Bld) [Entitic vol] 10.7 fL 6.2-12.0 [facility] Determination of erythrocyte mean corpuscular volume (MCV)Ordered By: Bighorn Carlitos on 09-05-2022 MCV (RBC) [Entitic vol] 92.6 fL 81-99 [facility] Hematocrit Auto (Bld) [Volum e fraction]Ordered By: Bighorn Carlitos on 09-05-2022 Hematocrit (Bld) [Volume fraction] 41.1 % 37-47 [facility] Laboratory - Chemistry and C hemistry - challengeOrdered By: Bighorn Carlitos on 09-05-2022 ALP [Catalytic activity/Vol] 70 U/L 45-117 [facility] ALT [Catalytic activity/Vol] 19 U/L 13-56 [facility] CO2 [Moles/Vol] 27.0 mmol/L 21.0-32.0 [facility] Globulin (S) [Mass/Vol] 3.8 g/dL 2.2-4.2 [facility] Urea nitrogen/Creatinine [Mass ratio] 12.5 mg/mg 10-20 [facility] Laboratory - Hematology and Cell countsOrdered By: Bighorn Carlitos on 09-05-2022 Erythrocyte distribution width (RBC) [Entitic vol] 43.8 fL 35.1-43.9 [facility] Erythrocyte distribution width (RBC) [Ratio] 13.0 % 11.6-14.6 [facility] Immature granulocytes/100 WBC (Bld) 0.300 % 0.0-0.9 [facility] Comment on above: IG% - Immature Granu locytes (promyelocytes, myelocytes and metamyelocytes) > 1% indicates that a LEFT SHIFT is Present. MCH (RBC) [Entitic mass] 29.1 pg 27.0-32.0 [facility] Nucleated RBC/100 WBC (Bld) [Ratio] 0 % 0-5 [facility] MCHC Auto (RBC) [Mass/Vol]Or dered By: Chraity Urbina on 09-05-2022 MCHC (RBC) [Mass/Vol] 31.4 g/dL 32-36 [facility] No Panel InformationOrdered By: Charity Urbina on 09-05-2022 Estimated GFR (MDRD) Amer 73 mL/min >60 [facility] Comment on above: GFR Calc Estimated GFR (MDRD) Non-Af Amer 61 mL/min >60 [facility] Comment on above: Non- GFR Calc Vitamin D 25-Hydroxy 68.3 ng/mL [facility] Comment on above: Vitamin D 25(OH) Sta tus Range Deficiency <20 ng/mL (50nmol/L) Insufficiency 20 - 30 ng/mL (50 - 75 nmol/L) Sufficiency 30 - 100 ng/mL (75 - 250 nmol/L) Toxicity >100 ng/mL (>250 nmol/L) Platelets bldOrdered By: Rosales Urbina on 09-05-2022 Platelets (Bld) [#/Vol] 391 10*3/uL 150-450 [facility] Serum or plasma albumin new urement (mass/volume)Ordered By: Charity Urbina on 09-05-2022 Albumin [Mass/Vol] 3.9 g/dL 3.2-5.0 [facility] Serum or plasma albumin/glob ulin mass ratioOrdered By: Charity Urbina on 09-05-2022 Albumin/Globulin [Mass ratio] 1.0 {ratio} 0.9-2.4 [facility] Serum or plasma calcium new urement (mass/volume)Ordered By: Charity Urbina on 09-05-2022 Calcium [Mass/Vol] 9.0 mg/dL 8.5-10.1 [facility] Serum or plasma cholesterol in HDL measurement (mass/volume)Ordered By: Charity Urbina on 09-05-2022 Cholesterol in HDL [Mass/Vol] 81 mg/dL >40 [facility] Comment on above: The drugs N-Acetylcy steine and Metamizole may falsely depress this assay. Reference Range HDL <40 mg/dL Low HDL Cholesterol HDL >or= 60 mg/dL High HDL Cholesterol Serum or plasma cholesterol in VLDL measurement (mass/volume)Ordered By: Charity Urbina on 09-05-2022 Cholesterol in VLDL [Mass/Vol] 15 mg/dL 5-40 [facility] Serum or plasma creatinine m easurement (mass/volume)Ordered By: Charity Urbina on 09-05-2022 Creatinine [Mass/Vol] 0.96 mg/dL 0.55-1.02 [facility] Comment on above: The validity of the calculated GFR & GFRAA in patients over 70 years has not been determined. Clinical correlation is essential. Serum or plasma low density lipoprotein (LDL) cholesterol measurement (mass/volume)Ordered By: Charitymihir Urbina on 09-05-2022 Cholesterol in LDL [Mass/Vol] 118 mg/dL 0-130 [facility] Serum or plasma urea nitroge n measurement (mass/volume)Ordered By: Charitymihir Urbina on 09-05-2022 Urea nitrogen [Mass/Vol] 12 mg/dL 7-18 [facility] Thin prep Papanicolaou smear with manual screeningOrdered By: Bighorn Carlitos on 09-05-2022 Thin prep Papanicolaou smear with manual screening 20 U/L 15-37 [facility] Thin prep Papanicolaou smear with manual screening 4 5-15 [facility] No Panel Informationon 11-29 Vitamin D 25-Hydroxy 84.1 ng/mL [facility] Work Phone: Comment on above: Vitamin D 25(OH) Sta tus Range Deficiency <20 ng/mL (50nmol/L) Insufficiency 20 - 30 ng/mL (50 - 75 nmol/L) Sufficiency 30 - 100 ng/mL (75 - 250 nmol/L) Toxicity >100 ng/mL (>250 nmol/L) Basophil percentageon 2021 Chloride [Moles/Vol] 104 mmol/L 98-107 [facility] Work Phone: Glucose [Mass/Vol] 98 mg/dL 74-106 [facility] Work Phone: Potassium [Moles/Vol] 4.1 mmol/L 3.5-5.1 [facility] Work Phone: Sodium [Moles/Vol] 136 mmol/L 136-145 [facility] Work Phone: Laboratory - Chemistry and C hemistry - challengeon 08-30-2021 CO2 [Moles/Vol] 28.0 mmol/L 21.0-32.0 [facility] Work Phone: Magnesium [Mass/Vol] 2.3 mg/dL 1.6-2.[address] [facility] Work Phone: Urea nitrogen/Creatinine [Mass ratio] 12.5 mg/mg 10-20 [facility] Work Phone: No Panel Informationon 08-30 Estimated GFR (MDRD) Amer 81 mL/min >60 [facility] Work Phone: Comment on above: GFR Calc Estimated GFR (MDRD) Non-Af Amer 67 mL/min >60 [facility] Work Phone: Comment on above: Non- GFR Calc Vitamin D 25-Hydroxy 102.2 ng/mL [facility] Work Phone: Comment on above: Vitamin D 25(OH) Sta tus Range Deficiency <20 ng/mL (50nmol/L) Insufficiency 20 - 30 ng/mL (50 - 75 nmol/L) Sufficiency 30 - 100 ng/mL (75 - 250 nmol/L) Toxicity >100 ng/mL (>250 nmol/L)Evidence suggests that patients undergoing fluorescein dye angiography can retain small amounts of fluorescein in the body for up to 48 to 72 hours post-treatment. In the cases of patients with renal insufficiency, retention could be much longer. Samples containing fluorescein can produce falsely elevated values when tested with the [employer]ia Centaur Vitamin D assay. With fluorescein interference, observed Vitamin D values can be as high as >150 ng/mL (>375 nmol/L). Samples should be resubmitted post fluorescein clearance to ensure there is no interference with Vitamin D test results. Serum or plasma calcium new urement (mass/volume)on 08-30-2021 Calcium [Mass/Vol] 9.4 mg/dL 8.5-10.1 [facility] Work Phone: Serum or plasma creatinine m easurement (mass/volume)on 08-30-2021 Creatinine [Mass/Vol] 0.88 mg/dL 0.55-1.02 [facility] Work Phone: Comment on above: The validity of the calculated GFR & GFRAA in patients over 70 years has not been determined. Clinical correlation is essential. Serum or plasma urea nitroge n measurement (mass/volume)on 08-30-2021 Urea nitrogen [Mass/Vol] 11 mg/dL 7-18 [facility] Work Phone: Thin prep Papanicolaou smear with manual screeningon 08-30-2021 Thin prep Papanicolaou smear with manual screening 4 08-14 [facility] Work Phone: CNOVon 10-08-2020 CNOV Office Visit (DIANNA) DALTONALBA LEUNG ([id number]) 1950 F Date Time Provider Department 10/08/20 9:30 AM JAYCEE CAMPOS During your visit today, we recorded the following information about you: Pulse Blood pressure Weight Height 96/minute 170/72 51.7 kg 1.54 m Jaycee Campos APRN.CNP 10/13/2020 12:55 PM Signed DEPARTMENT OF GASTROENTEROLOGY - NEW PATIENT/CONSULT REASON FOR VISIT Alba Toribio is a 70 year old female who is scheduled for Medication Follow-up Alba Toribio was last seen by Dr.Brain Granado for ulcerative colitis The patient was seen by on 01/14/2018 for colonoscopy for Left-sided chronic ulcerative colitis . The procedures were performed with Fentanyl 100 micrograms IV, Midazolam 5 mg IV sedation. The procedure report has been reviewed and findings as follows: Impression: ? ? - Altered vascular, atrophic and ? ryahplan-xsxsipe-[id number] reased mucosa in the ? recto-sigmoid colon. Biopsied. FINAL DIAGNOSIS Recto-sigmoid, biopsy - Colonic mucosa with chronic inactive colitis. Negative for dysplasia. HISTORY OF PRESENT ILLNESS Alba Toribio is a 70 year old female who presents today for an evaluation of longstanding history of ulcerative colitis. She is taking Asacol and self increases when she is having a flare. The patient denies a change in bowel habits, black stool, rectal bleeding or abdominal pain. Having a bowel movement daily. Patient reports flares only around the jossy time and just because it's a stressful time. Otherwise patient reports colitis is under control she is able to travel and live day to day without complications of colitis. PAST MEDICAL HISTORY Diagnosis Date - Dizziness and giddiness - Esophagitis, unspecified - Other and unspecified ovarian cyst Ovarian cyst - Other ulcerative colitis Every 5 year surveillance - Papanicolaou smear of cervix with atypical squamous cells of undetermined significance (ASC-US) - Papanicolaou smear of cervix with atypical squamous cells of undetermined significance (ASC-US) - Ulcerative colitis, unspecified - Urinary tract infection, site not specified Recurrent UTI's - Vertigo PAST SURGICAL HISTORY Procedure Laterality Date - COLONOSCOP W/ OR W/O [facility] SPEC 09/18/83 Colonoscopy - COLONOSCOP W/ OR W/O [facility] SPEC 02/19/13 Colonoscopy - COLONOSCOPY W/BX 04/23/08 - EGD W/O [facility] SPECIMEN W/BX 04/23/08 - EGD W/O OR W/BRUSH/WASH 02/19/13 EGD - LIGATE FALLOPIAN TUBE Tubal ligation - NOSE SURGERY HX july 2013 polp removed from nose - PAST SURGICAL HISTORY OF 1975 DERMOID CYST REMOVED - TOTAL ABDOM HYSTERECTOMY 08/1991 Current Outpatient Medications Medication Sig Dispense Refill - potassium chloride ER (K-DUR, KLOR-CON) 20 mEq tablet Take 20 mEq by mouth twice daily. - citalopram hydrobromide (CELEXA) 10 mg tablet Take 10 mg by mouth once daily. - Cranberry 500 mg cap Take 1 capsule by mouth once daily. - mesalamine (ASACOL HD) 800 mg TbEC EC tablet Take 1 tablet by mouth once daily. 30 tablet 11 - cholecalciferol (VITAMIN D-3) 5,000 unit tab Take 5,000 Units by mouth once daily. - Estradiol (VAGIFEM) 10 mcg tab vaginal tablet Use 1 tab daily for 2 weeks AND then 2 times per week ongoing. 40 tablet 2 - Ascorbic Acid (VITAMIN C) 1,000 mg tablet Take 1,000 mg by mouth once daily. - Omeprazole (PRILOSEC) 40 mg capsule Take 1 capsule by mouth once daily. 0 - solifenacin (VESICARE) 5 mg tablet Take 1 tablet by mouth once daily. 0 - Lutein 20 mg cap Take 1 capsule by mouth. 0 - calcium carbonate(CALTRATE 600 600 MG (1,500 MG) TAB) with Vitamin D. Take two tablets daily. 0 - MULTIVITAMIN CAP 0 - traZODone (DESYREL) 50 mg tablet TAKE 1/2 (ONE-HALF) TO 1 (ONE) TABLET BY MOUTH AT BEDTIME for sleep (Patient not taking: Reported on 10/08/2020) 1 - fluticasone (FLONASE) 50 mcg/actuation nasal spray Use 1 [place] in each nostril twice daily. (Patient not taking: Reported on 10/08/2020 ) No current facility-administere d medications for this visit. ALLERGIES Allergen Reactions - Asa [Salicylates] GI Upset - Bee Stings [Other] - Sulfa (Sulfonamide * Hives Social History Tobacco Use - Smoking status: Never Smoker - Smokeless tobacco: Never Used Substance Use Topics - Alcohol use: Yes Comment: social - Drug use: No FAMILY HISTORY (grandparents, parents, brothers, sisters, aunts, or uncles) Ulcerative Colitis: Yes Crohn's Disease: No Colon Cancer: No Colon Polyps: No IBS: No Celiac disease: No PHYSICAL EXAMINATION BP 170/72 Pulse 96 Ht 5' .63 (1.54m) Wt 114 lb (51.7kg) SpO2 97% BMI 21.80 kg/(m2). General Appearance: Well appearing, alert, in no acute distress, well-hydrated, well nourished. Eyes: PERRLA, conjunctiva and sclera normal Lungs:breath sounds clear to auscultation bilaterally, no crackles, rhonchi, or (more content not included)... Normal [facility] HISTORY PHYSICALon HISTORY PHYSICAL HNO ID: [id number] Author: Jaycee Campos APRN.RESEARCH SPECIALIST Service: ? Author Type: Nurse Practitioner Type: HANDP Filed: 10/13/2020 12:55 PM Note Text: DEPARTMENT OF GASTROENTEROLOGY - NEW PATIENT/CONSULT REASON FOR VISIT Alba Toribio is a 70 year old female who is scheduled for Medication Follow-up Alba Toribio was last seen by Dr.Brain Granado for ulcerative colitis The patient was seen by on 01/14/2018 for colonoscopy for Left-sided chronic ulcerative colitis . The procedures were performed with Fentanyl 100 micrograms IV, Midazolam 5 mg IV sedation. The procedure report has been reviewed and findings as follows: Impression: ? ? - Altered vascular, atrophic and ? wnyiphgp-yanuwfn-bsv reased mucosa in the ? recto-sigmoid colon. Biopsied. FINAL DIAGNOSIS Recto-sigmoid, biopsy - Colonic mucosa with chronic inactive colitis. Negative for dysplasia. HISTORY OF PRESENT ILLNESS Alba Toribio is a 70 year old female who presents today for an evaluation of longstanding history of ulcerative colitis. She is taking Asacol and self increases when she is having a flare. The patient denies a change in bowel habits, black stool, rectal bleeding or abdominal pain. Having a bowel movement daily. Patient reports flares only around the jossy time and just because it's a stressful time. Otherwise patient reports colitis is under control she is able to travel and live day to day without complications of colitis. PAST MEDICAL HISTORY Diagnosis Date - Dizziness and giddiness - Esophagitis, unspecified - Other and unspecified ovarian cyst Ovarian cyst - Other ulcerative colitis Every 5 year surveillance - Papanicolaou smear of cervix with atypical [...] CYST REMOVED - TOTAL ABDOM HYSTERECTOMY 08/1991 Current Outpatient Medications Medication Sig Dispense Refill - potassium chloride ER (K-DUR, KLOR-CON) 20 mEq tablet Take 20 mEq by mouth twice daily. - citalopram hydrobromide (CELEXA) 10 mg tablet Take 10 mg by mouth once daily. - Cranberry 500 mg cap Take 1 capsule by mouth once daily. - mesalamine (ASACOL HD) 800 mg TbEC EC tablet Take 1 tablet by mouth once daily. 30 tablet 11 - cholecalciferol (VITAMIN D-3) 5,000 unit tab Take 5,000 Units by mouth once daily. - Estradiol (VAGIFEM) 10 mcg tab vaginal tablet Use 1 tab daily for 2 weeks AND then 2 times per week ongoing. 40 tablet 2 - Ascorbic Acid (VITAMIN C) 1,000 mg tablet Take 1,000 mg by mouth once daily. - Omeprazole (PRILOSEC) 40 mg capsule Take 1 capsule by mouth once daily. 0 - solifenacin (VESICARE) 5 mg tablet Take 1 tablet by mouth once daily. 0 - Lutein 20 mg cap Take 1 capsule by mouth. 0 - calcium carbonate(CALTRATE 600 600 MG (1,500 MG) TAB) with Vitamin D. Take two tablets daily. 0 - MULTIVITAMIN CAP 0 - traZODone (DESYREL) 50 mg tablet TAKE 1/2 (ONE-HALF) TO 1 (ONE) TABLET BY MOUTH AT BEDTIME for sleep (Patient not taking: Reported on 10/08/2020) 1 - fluticasone (FLONASE) 50 mcg/actuation nasal spray Use 1 [place] in each nostril twice daily. (Patient not taking: Reported on 10/08/2020 ) No current facility-administere d medications for this visit. ALLERGIES Allergen Reactions - Asa [Salicylates] GI Upset - Bee Stings [Other] - Sulfa (Sulfonamide * Hives Social History Tobacco Use - Smoking status: Never Smoker - Smokeless tobacco: Never Used Substance Use Topics - Alcohol use: Yes Comment: social - Drug use: No FAMILY HISTORY (grandparents, parents, brothers, sisters, aunts, or uncles) Ulcerative Colitis: Yes Crohn's Disease: No Colon Cancer: No Colon Polyps: No IBS: No Celiac disease: No PHYSICAL EXAMINATION BP 170/72 Pulse 96 Ht 5' .63 (1.54m) Wt 114 lb (51.7kg) SpO2 97% BMI 21.80 kg/(m2). General Appearance: Well appearing, alert, in no acute distress, well-hydrated, well nourished. Eyes: PERRLA, conjunctiva and sclera normal Lungs:breath sounds clear to auscultation bilaterally, no crackles, rhonchi, or wheezes Heart: regular rate and rhythm, no murmurs or gallops. Abdomen: not distended, normal bowel sounds, soft and depressible, no guarding or rebound, no palpable mass, no organomegaly Rectal exam: Deferred. Extremities: no cyanosis (more content not included)... Normal [facility] Culture, urine Bacteria identified Cx Nom (U) Proteus mirabilis [facility] Work Phone: Vital Signs Date Time Vital Sign Value Performing Clinician Faci luceroy 10-04-2022 10:03-0400 Body height 152.4 cm [facility] 07-25-2021 13:06-0400 Body height 152.[address] Fredis Vasquez Work Phone: [facility] Work Phone: 07-25-2021 13:06-0400 Body mass index (BMI) [Ratio] 22.5 kg/m2 Dr. Fredis Vasquez Work Phone: [facility] Work Phone: 07-25-2021 13:06-0400 Body weight 52.[address] Fredis Vasquez Work Phone: [facility] Work Phone: 07-25-2021 13:06-0400 Diastolic blood pressure 88 mm[Hg] Dr. Fredis Vasquez Work Phone: [facility] Work Phone: 07-25-2021 13:06-0400 Systolic blood pressure 140 mm[Hg] Dr. Fredis Vasquez Work Phone: [facility] Work Phone: 07-25-2021 13:06-0400 Body height 152.[address] Fredis Vasquez Work Phone: [facility] Work Phone: 07-25-2021 13:06-0400 Body mass index (BMI) [Ratio] 22.5 kg/m2 Dr. Fredis Vasquez Work Phone: [facility] Work Phone: 07-25-2021 13:06-0400 Body weight 52.[address] Fredis Vasquez Work Phone: [facility] Work Phone: 07-25-2021 13:06-0400 Diastolic blood pressure 88 mm[Hg] Dr. Fredis Vasquez Work Phone: [facility] Work Phone: 07-25-2021 13:06-0400 Systolic blood pressure 140 mm[Hg] Dr. Fredis Vasquez Work Phone: [facility] Work Phone: Encounters Encounter Date Encounter Type Care Provider Facility Start: 05-27-2024 End: 05-27-2024 ambulatory Charity Urbina [facility] Work Phone: [facility] Work Phone: Start: 05-27-2024 End: 05-27-2024 Patient encounter procedure Charity Urbina [facility] -[place], Gerson Vargas [facility] Start: 05-27-2024 End: 05-27-2024 ambulatory Charity Urbina Facility:[facility] Start: 10-10-2023 End: 10-10-2023 ambulatory Charity Urbina Facility:[facility] Start: 09-14-2023 End: 09-14-2023 ambulatory [facility] Facility:[facility] Start: 10-04-2022 End: 10-04-2022 ambulatory [facility] Work Phone: Start: 10-04-2022 End: 10-04-2022 Patient encounter procedure [facility]-Outpatient Bone Densitometry Work Phone: Start: 09-05-2022 End: 09-05-2022 [facility] Start: 11-29-2021 End: 11-29-2021 ambulatory [facility] Work Phone: Start: 11-29-2021 End: 11-29-2021 Patient encounter procedure [facility] Start: 10-19-2021 End: 10-19-[address] Fredis Vasquez [facility] Start: 09-05-2021 End: 09-05-[address] Fredis Vasquez Work Phone: [facility]-Outpatient Breast Imaging Start: 08-30-2021 End: 08-30-[address] Fredis Vasquez Work Phone: [facility] Start: 07-25-2021 End: 07-25-[address] Fredis Vasquez Work Phone: [facility] Procedures Date Procedure Procedure Detail Performing Clinician Start: 10-04-2022 Dual energy X-ray absorptiometry Start: 10-04-2022 Screening mammography Start: 09-05-2021 Screening mammography Elaina Vasquez Work Phone: Urine culture Dr. Fredis joyner Work Phone: Payers Date Payer Category Payer Self-pay [id number] 2023 Private Health Insurance [id number] 2012 Unknown [id number] Medicare [id number] Unknown [id number] Unknown [id number] Unknown [id number] Social History Date Type Detail Facility Start: 07-25-2021 Tobacco smoking stat [facility] Unknown if ever smoked [facility] Start: 1950 Sex Assigned At Female [facility] Start: 07-25-2021 Tobacco smoking stat [facility] Never smoked tobacco (finding) [facility] Start: 06-09-2024 Sex Female (finding) [facility] Evaluation note Note Date & Type Note Facility Evaluation note Diagnosis Onset Date Atrophic vaginitis acute [facility] Work Phone: Evaluation note Note Date & Type Note Facility Evaluation note Diagnosis Onset Date Atrophic vaginitis acute Encounter for routine gyneco logical examination noneactive [facility] Work Phone: Evaluation note Note Date & Type Note Facility Evaluation note No assessment information availa ble [facility] Work Phone: Reason for referral (narrative) Note Date & Type Note Facility Reason for referral (narrative) No reason for referral information available [facility] Work Phone: Summary Purpose Family History Relationship Condition Age at Onset Recorded Date/T lizzette father Malignant neoplasm of bone Unknown Advance Directives No Advanced Directives Records FoundNo Advanced Directives Records Found Chief Complaint and Reason for Visit 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) Reason for Visit Atrophic vaginitis 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) SCREENING Reason for Visit Atrophic vaginitis 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) SCREENING Reason for Visit Atrophic vaginitis Encounter for routine gynecological examination Chief Complaint SCREENING Chief Complaint SCREENING, OSTEOPORO SIS Additional Source Comments INFORMATION SOURCE (unrecogn ized section and content) DATE CREATED AUTHOR 03/20/2021 [facility] DATE CREATED AUTHOR AUTHOR'S ORGANIZ ATION 06/11/2024 [facility] Goals (unrecognized section and content) Goals may be documented in a n alternate sectionGoals may be documented in an alternate sectionGoals may be documented in an alternate sectionGoals may be documented in an alternate sectionGoals may be documented in an alternate sectionGoals may be documented in an alternate section Care Teams (unrecognized sec tion and content) Team Status: Active Member Role Status Dates Dr. Fredis Vasquez MD Family Provider Active [facility] Primary Care Provider Active Team Status: Inactive Member Role Status Dates [facility] Primary Care Provide r, Attending Provider, Referring Provider Active Team Status: Inactive Member Role Status Dates [facility] Primary Care Provider Active Start: May 27, 2024 End: May 27, 2024 [facility] Attending Provider Active St art: May 27, 2024 End: May 27, 2024 FOR RECORDS PERTAINING TO PATIENTS WHO ARE OR HAVE BEEN ENROLLED IN A CHEMICAL DEPENDENCY/SUBSTANCEABUSE PROGRAM, SOME INFORMATION MAY BE OMITTED. This clinical summary was aggregated from multiple sources. Caution should be exercised in using it in the provision of clinical care. This summary normalizes information from multiple sources, and as a consequence, information in this document may materially change the coding, format and clinical context of patient data. In addition, data may be omitted in some cases. CLINICAL DECISIONS SHOULD BE BASED ON THE PRIMARY CLINICAL RECORDS. [employer] provides no warranty or guarantee of the accuracy or completeness of information in this document.
== END | disposition home or self-care (01) ==
LOC: BFHLAB 14:00
PROVIDERS: PCP Nurse Practitioner Family; Visit Provider Nurse Practitioner Family
DX: R07.9 Chest pain, unspecified (principal)
CPT/HCPCS: 36415; 80048; 83735; 84484

== ENCOUNTER → 2024-10-06 | Outpatient (CLI) | payer MEDICARE, SELFPAY | END | disposition home or self-care (01) | LOC: MRI 15:58 | PROVIDERS: PCP Nurse Practitioner Family; Referring Provider Nurse Practitioner Family; Visit Provider Nurse Practitioner Family | DX: R42 Dizziness and giddiness (principal); R41.3 Other amnesia | CPT/HCPCS: 70551 ==